=== PATIENT | male | born 1960 | race Caucasian/White ===

== ENCOUNTER 2017-10-23 11:00 | Emergency (ER) | payer OTHER, SELFPAY ==
[2017-10-23 11:01] VITALS: BP 147/74; PULSE 87; RESP 18; TEMP 36.9; O2SAT 99; BMI 44.6
--- NOTE | 2017-10-23 11:49 | ED.VISSUMM ---
- ER Visit Summary Date of Service: 10/23/17 Chief Complaint: Back pain History of Present Illness: The patient is a 57 M with onset of right-sided back pain after masturbating the shower yesterday. No radiation of his pain to his leg. No saddle anesthesia. He has no urinary symptoms, no urinary retention no bowel incontinence. No other trauma or pain. Physical Examination: Patient is a morbidly obese gentleman who does not appear in significant distress he is quite jolly and conversive. His heart is regular lungs are clear abdomen is soft obese but nontender. He has no LS spine tenderness most of his pain is in the paraspinal region on the right. He has normal reflexes normal plantar flexion of both feet normal dorsiflexion of both great toes. Emergency Department Course and Treatment: Patient does not exhibit any red flags he will be discharged with analgesia as and muscle relaxants. Discharge stable condition Impression: Lumbar strain This note was generated with [employer] dictation software. It may contain incorrect words, spelling, and punctuation that were not noted in review of the chart prior to signing ED Disposition - Plan for ED Patient: Chief Complaint: Back Referrals: Rylie Fu [Primary Care Provider] -
--- NOTE | 2017-10-23 11:52 | ED.VISSUMM ---
- ER Visit Summary Date of Service: 10/23/17 Chief Complaint: [] History of Present Illness: The patient is a 57 M [] Physical Examination: [] Test Results: [] Emergency Department Course and Treatment: [] Treatment Plan: [] Disposition: [] Impression: [] This note was generated with [employer] dictation software. It may contain incorrect words, spelling, and punctuation that were not noted in review of the chart prior to signing ED Disposition - Plan for ED Patient: Disposition: Home or Assisted Living Chief Complaint: Back Instructions: ED Neck Back Pain General Prescriptions: Naproxen [Naprosyn] 500 mg PO BID PRN #20 tab Tizanidine HCl 2 mg PO BID #10 tab Referrals: Rylie Fu [Primary Care Provider] - 2 Days
--- NOTE | 2017-10-23 11:55 | ED.DEP ---
ED Disposition - Plan for ED Patient: Disposition: Home or Assisted Living Chief Complaint: Back Instructions: ED Neck Back Pain General Prescriptions: Naproxen [Naprosyn] 500 mg PO BID PRN #20 tab Tizanidine HCl 2 mg PO BID #10 tab Referrals: Rylie Fu [Primary Care Provider] - 2 Days
== END 2017-10-23 12:25 | disposition home or self-care (01) ==
PROVIDERS: Emergency Provider Emergency Medicine
DX: S39.012A Strain of muscle, fascia and tendon of lower back, initial encounter (principal); X50.1XXA Overexertion from prolonged static or awkward postures, initial encounter; Y93.E1 Activity, personal bathing and showering; Y92.091 Bathroom in other non-institutional residence as the place of occurrence of the external cause; Y99.9 Unspecified external cause status; E66.01 Morbid (severe) obesity due to excess calories; E11.9 Type 2 diabetes mellitus without complications; I10 Essential (primary) hypertension
CPT/HCPCS: 99282

== ENCOUNTER → 2018-03-27 07:06 | Outpatient (CLI) | payer OTHER, SELFPAY ==
--- NOTE | 2018-03-26 16:30 | LES_PTH ---
PATIENT: HUMBLE BOYER LOC: [facility] U#:[id number] AGE/SX: 64/M ROOM: RE03/27/[address]: Dr. Rico Farah MD : 1960 BED: DIS: SPEC #: [id number] RECD: 03/26/18 17:25 STATUS: CHICHO BALJEET #: [id number] HANY: 03/26/18 16:[address]: Rico Farah DEPT: SURGICAL PATHOLOGY RECD BY: Corey Ballard ENTERED: 03/27/18 07:21 SP TYPE: Lesion OTHR DR: [facility] Tissues: Skin of eyelid, NOS Procedures: Surgery Specimen Level IV HEADER OPERATION: Excisional biopsy of lesion RLL PRE-OP DIAGNOSIS: Lesion present x long time TISSUE SUBMITTED: Lesion RLL MICROSCOPIC DIAGNOSIS Lesion of right lower eyelid, biopsy: Fragments of fibroepithelial polyp, inflamed. AM:nehemiah 03/28/18 MICROSCOPIC DESCRIPTION Slides are reviewed. GROSS DESCRIPTION Received in fixative is one container labeled with the patient's name and designated right lower lid lesion. The specimen consists of a polypoid piece of barrios-white skin measuring 0.6 x 0.6 x 0.5 cm. The specimen is inked, bisected and submitted entirely in one cassette. / SJ:rg 03/27/18 TC:1 CPT: 15287
== END ==
PROVIDERS: Referring Provider Ophthalmology; Visit Provider Ophthalmology
DX: H02.9 Unspecified disorder of eyelid (principal)
CPT/HCPCS: 88305

== ENCOUNTER → 2019-11-20 09:15 | Outpatient (CLI) | payer BC, SELFPAY ==
[2019-02-28 17:08] VITALS: BMI 44.6
[2019-11-20 10:46] LABS: Absolute Lymphocyte Count 1.62 X10^3/uL (0.83-4.51); Absolute Neutrophil Count 7.1 X10^3/uL (2.0-7.7); Basophil# 0.03 X10^3/uL; Basophil% 0.3 % (0-1); Eosinophil# 0.07 X10^3/uL; Eosinophils% 0.7 % (0-5); Hemoglobin 11.1 g/dL (13.0-16.5); Lymphocyte # 1.62 X10^3/ul (4.0); Lymphocyte % 16.7 % (19-41); Mean Corp Hgb Conc 31.7 g/dL (32-36); Mean Corpuscular Hgb 24.8 pg (27.0-32.0); Mean Corpuscular Volume 78.1 fL (80-94); Mean Platelet Vol. 9.3 fl (6.2-12.0); Monocyte% 8.2 % (0-10); NRBC Flagged by Analyzer 0 % (0-5); Neutrophil # 7.08 X10^3/uL (2.7-7.7); Neutrophil % 73.1 % (47-70); Platelet Count 254 K/mm3 (150-450); RBC Distribution Width CV 14.9 % (11.6-14.6); Red Blood Count 4.48 M/mm3 (4.6-6.2); White Blood Count 9.7 K/mm3 (4.4-11.0)
[2019-11-20 11:26] LABS: Vitamin D,25 Hydroxy 29.4 ng/mL
[2019-11-20 11:33] LABS: ALB/GLOB Ratio 0.8 RATIO (0.9-2.4); AST(SGOT) 36 U/L (15-37); Alanine Aminotransfer ALT/SGPT 48 U/L (16-61); Albumin, Serum 3.3 g/dL (3.2-5.0); Alkaline Phosphatase 97 U/L (45-117); Anion Gap 8 (5-15); BUN 16 mg/dL (7-18); BUN/Creat Ratio 15.8 RATIO (10-20); Calcium,Total 8.9 mg/dL (8.5-10.1); Chloride 97 mmol/L (98-107); Cholesterol 124 mg/dL (200); Creatinine, Serum 1.01 mg/dL (0.70-1.30); EST Glomerular Filtration Rate 80 mL/min (>60); Est Glom Filt Rate - Afr Amer 96 mL/min (>60); Globulin 4.2 g/dL (2.2-4.2); Glucose 259 mg/dL (74-106); High Density Lipoprotein 31 mg/dL; Potassium 3.5 mmol/L (3.5-5.1); Protein, Total 7.5 g/dL (6.4-8.2); Sodium Level 134 mmol/L (136-145); Triglycerides 232 mg/dL; Very Low Density Lipoprotein 46 mg/dL (5-40)
== END ==
DX: E11.65 Type 2 diabetes mellitus with hyperglycemia (principal); I10 Essential (primary) hypertension; E78.5 Hyperlipidemia, unspecified; E55.9 Vitamin D deficiency, unspecified
CPT/HCPCS: 36415; 80053; 80061; 82306; 83036; 85025

== ENCOUNTER 2020-01-20 08:13 | Day surgery (SDC) | payer BC, SELFPAY ==
[2019-12-30 14:58] VITALS: BMI 44.6
--- NOTE | 2020-01-20 08:32 | HP.PCM_ITS ---
Problem List (1) Personal history of colonic polyps Status: Acute History and Physical Date of Admission: 01/20/20 Intake Visit Reasons: CSCOPE/ ABDOMINAL PAIN Quality Assurance Intern Required: No Is patient in pain?: No Allergies house dust Allergy (Verified 12/30/19 14:59) Unknown ragweed pollen Allergy (Verified 12/30/19 14:59) Unknown Medications Amlodipine [Norvasc] 10 mg PO DAILY 06/01/13 [History Confirmed 12/30/19] Ferrous Sulfate [Iron Supplement] 325 mg PO DAILY 06/01/13 [History Confirmed 12/30/19] Hydrochlorothiazide 12.5 mg PO DAILY 06/01/13 [History Confirmed 12/30/19] Loratadine [Claritin] 10 mg PO DAILY 06/01/13 [History Confirmed 12/30/19] Atenolol [Tenormin] 25 mg PO BID 10/23/17 [History Confirmed 12/30/19] Candesartan/Hydrochlorothiazid [Atacand Hct 32-12.5 MG Tab] 1 tab PO DAILY 10/23/17 [History Confirmed 12/30/19] Dulaglutide [Trulicity] 0.75 mg SQ QWEEK 10/23/17 [History Confirmed 12/30/19] Fluticasone Propionate [Flovent Diskus] 2 spray NARES BID 10/23/17 [History Confirmed 12/30/19] Insulin Glargine,Hum.rec.anlog [Lantus Solostar] 25 unit SQ DAILY 10/23/17 [History Confirmed 12/30/19] Omeprazole 40 mg PO DAILY 10/23/17 [History Confirmed 12/30/19] Pravastatin Sodium 40 mg PO DAILY 10/23/17 [History Confirmed 12/30/19] Sildenafil Citrate [Sildenafil] 20 - 40 mg PO PRN PRN 10/23/17 [History Confirmed 12/30/19] metformin 1,000 mg tablet 1,000 mg PO BID tab 12/30/19 [History Confirmed 12/30/19] [facility] Medical History Hemorrhoids (Acute) Acid reflux (Acute) Abdominal pain (Acute) Sleep apnea (Acute) Heart murmur (Acute) Numbness and tingling (Acute) Arthritis (Acute) Back problem (Acute) HTN (hypertension) (Chronic) Diabetes (Acute) Hay fever (Acute) Knee pain (Acute) Neck pain (Acute) Kidney stone (Acute) Left otitis externa (Acute) Surgical History Hx of colonoscopy (Acute) Family History Mother Diabetes Heart disease Hypertension Father Kidney disease CVA (cerebral vascular accident) Hypertension Diabetes Social History (Updated 12/30/19 @ 15:[address] Dean Jon MD) Smoking Status: Former smoker second hand exposure: No alcohol intake: never substance use type: does not use caffeine: Yes what type of physical activity do you participate in: none frequency: does not exercise HPI HPI HPI: HUMBLE BOYER, is a 59 M who presents to the office today for further discussion regarding a colonoscopy. He is referred by Monique Azar CNP and the [facility] and a written compromise surgical consult recommendations will return to them. The patient states that he has a strong family history of colon polyps. This would be in a mother and his sister. No family history of colon cancer of which she is aware. He had a colonoscopy [address] Donahue showing multiple polyps. He had a colonoscopy done by Dr. Jeffrey Soriano April 2010 showing inflammatory type polyp of the descending colon. He apparently is chronically iron deficient. As of November 20, 2019 white blood cell count was 9.7 with a hemoglobin 11.1 and hematocrit of 35 and a platelet count of 254,000. BUN is 16 creatinine 1.01. Glucose at that time was elevated to 259 and triglyceride was 232 He is noting that he has extra flatulence. He has not noticed any bright red blood per rectum. He denies abdominal pain. He is employed at [employer]. He states that they just now have been having laid-off employees return. HPI HPI HPI: HUMBLE BOYER, is a 59 M who presents to the office today for ROS General General: No weight change, appetite, fatigue, colon cancer, breast cancer or weakness HEENT HEENT: No difficulty swallowing, eye injury, eye surgery, swollen glands or hoarseness Endo Endocrine: Yes diabetes mellitus; no thyroid disease, thyroid cancer, Hair loss, heat intolerance or cold intolerance Skin Skin: Yes rash and changing moles Musc Musculoskeletal: Yes back problems and arthritis; no rheumatoid arthritis, gout or joint pain Cardio Cardiovascular: Yes murmur and high blood pressure; no pacemaker, heart disease, atrial fibrillation, heart attack, heart stent, palpitations, shortness of breat with exertion or chest pain Psych Psychiatric: No depression, anxiety or hearing voices Resp Respiratory: No shortness of breath, Yes sleep apnea, No cough, No COPD, No asthma, No emphysema, No wheezing Gastro Gastrointestinal: Yes abdominal pain, No nausea or vomiting, No diarrhea, No constipation, No blood in stool, Yes acid reflux, Yes hemorrhoids, No ulcers, No gallbladder problem, No black,tarry stools [place] Hematologic: No blood thinners, No blood disorders, No bleeding, No anemia, No blood clots Neuro Neurologic: No system reviewed and no additional complaints, except as docu, No as per HPI, No abnormal walking, No abnormal hearing, No abnormal movements, No abnormal speech, No behavioral changes, No burning sensations, No confusion, No seizure-like activity, No unsteadiness, No dizziness, No localized weakness, No frequent falls, No headache(s), No lack of coordination, No loss of vision, No memory loss, No numbness, No other visual disturbances, No radiating pain, No restless legs, No sensory deficit, No fainting, No tingling, No tremor(s), No weakness, No other Exam Const General: cooperative, comfortable, no acute distress Nutritional Appearance: obese morbidly obese [facility] Head: normal to inspection Eyes General: appearance normal, both eyes and all related structures Resp Effort & Inspection: normal respiratory effort Auscultation: clear to auscultation bilaterally Cardio Rate: regular rate, tachycardic Rhythm: regular rhythm Heart Sounds: murmur GI Palpation: soft Other: Obese, no gross hepatosplenomegaly, normal bowel sounds, nontender Musc Cervical Spine: normal cervical lordosis Neuro General: awake Extrem General: no calf tenderness Psych Affect: normal affect Assessment & Plan Problems 1. Personal history of colonic polyps Z86.010 Plan I recommend to the patient a colonoscopy with possible biopsy or polypectomy as indicated. Body habitus is tender 60 pounds with a BMI of 44.6. I anticipate utilizing an adult colonoscope. We will use a slightly more aggressive bowel prep. He is on chronic iron therapy as well. He has had an opportunity to ask and have questions answered. I anticipate utilizing monitored anesthesia care. I appreciate the opportunity of assisting with her surgical management. Copy: Monique Azar CNP and the [facility] Dean Jon M.D., F.A.C.S. I have re-examined the patient. There are no clinical changes since date of exam. Procedure Criteria Procedure Type: Elective COVID Risk Discussion: The surgeon/proceduralist and patient have discussed in detail the risk of exposure to and/or potential harm posed by the COVID-19 virus with having a surgery/procedure at this time versus the risk of delaying the surgery/procedure. It is not possible to know either the risk of delaying the surgery or procedure or chance of getting an infection with perfect accuracy, but a joint decision was made between the patient and the surgeon/proceduralist to proceed at this time with the scheduled surgery/procedure as indicated on the consent form.
[2020-01-20 08:49] VITALS: BP 127/54; PULSE 80; RESP 20; TEMP 36.2; O2SAT 97; BMI 43.4
[2020-01-20] MEDS: Lactated Ringers 1,000 ML 100 ML IV (09:00)
[2020-01-20 09:11] LABS: Bedside Glucose 222 mg/dL (70-110)
--- NOTE | 2020-01-20 09:30 | COLBX_PTH ---
PATIENT: HUMBLE BOYER LOC: EN U#:[id number] AGE/SX: 59/M ROOM: RE01/20/[address]: Dr. Dean Jon MD : 1960 BED: DIS: 01/20/2020 SPEC #: [id number] RECD: 01/20/20 11:22 STATUS: CHICHO BALJEET #: [id number] HANY: 01/20/20 09:[address]: Dean Jon DEPT: SURGICAL PATHOLOGY RECD BY: Angelique Hunter ENTERED: 01/20/20 12:12 SP TYPE: COLON BX OTHR DR: Dr. Willie Babcock MD [place] Tissues: A - Cecum, NOS B - Cecum, NOS C - COLON BIOPSY D - COLON BIOPSY E - Descending colon F - Sigmoid colon biopsy G - Sigmoid colon biopsy H - Rectum, NOS Procedures: Surgery Specimen Level IV HEADER OPERATION: Colonoscopy (MAC) PRE-OP DIAGNOSIS: Colonic polyps TISSUE SUBMITTED: A - Cecum polyp, B - Cecum polyp #2 biopsy, C - Hepatic flexure polyp, D - Splenic flexure polyp, E - Descending polyp biopsy, F - Sigmoid polyps (x4) biopsy, G - Distal sigmoid polyp biopsy, H - Rectum polyp MICROSCOPIC DIAGNOSIS A. Cecum polyp, biopsy: Fragments of tubular adenoma. B. Cecal polyp #2, biopsy: Tubular adenoma. C. Hepatic flexure polyp, biopsy: Fragments of tubular adenoma. Fragments of fecal material. D. Splenic flexure polyp, biopsy: Fragments of tubular adenoma. Fragments of fecal material. E. Descending colon polyp, biopsy: Fragments of colonic mucosa, no pathologic diagnosis. F. Sigmoid polyp, biopsy: Fragments of colonic mucosa with focal hyperplastic changes. G. Distal sigmoid polyp, biopsy: A fragment of colonic mucosa with focal hyperplastic changes. H. Rectal polyp, biopsy: Consistent with inflammatory polyp. SJ:nehemiah 01/21/20 MICROSCOPIC DESCRIPTION Slides are reviewed. GROSS DESCRIPTION A - Received in fixative is one container labeled with the patient's name and designated cecum polyp. The specimen consists of multiple irregular fragments of light barrios soft tissue that in aggregate measure 0.8 x 0.8 x 0.2 cm. The specimen is totally submitted in one cassette. B - Received in fixative is one container labeled with the patient's name and designated cecum polyp #2 biopsy. The specimen consists of one irregular fragment of light barrios soft tissue that measures 0.3 x 0.2 x 0.1 cm. The specimen is totally submitted in one cassette. C - Received in fixative is one container labeled with the patient's name and designated hepatic flexure polyp. The specimen consists of multiple irregular fragments of light barrios soft tissue mixed with fecal material that in aggregate measure 3 x 0.5 x 0.2 cm. The specimen is totally submitted in one cassette. D - Received in fixative is one container labeled with the patient's name and designated splenic flexure polyp. The specimen consists of multiple irregular fragments of light barrios soft tissue mixed with fecal material that in aggregate measure 2.5 x 0.5 x 0.3 cm. The largest fragment measures 1 cm in greatest dimension. The specimen is totally submitted in one cassette. E - Received in fixative is one container labeled with the patient's name and designated descending polyp biopsy. The specimen consists of two irregular fragments of light barrios soft tissue that in aggregate measure 0.8 x 0.3 x 0.1 cm. The specimen is totally submitted in one cassette. F - Received in fixative is one container labeled with the patient's name and designated sigmoid polyp (x4) biopsy. The specimen consists of multiple irregular fragments of light barrios soft tissue that in aggregate measure 1.5 x 0.5 x 0.1 cm. The specimen is totally submitted in one cassette. G - Received in fixative is one container labeled with the patient's name and designated distal sigmoid polyp biopsy. The specimen consists of one irregular fragment of light barrios soft tissue that measures 0.3 x 0.2 x 0.1 cm. The specimen is totally submitted in one cassette. H - Received in fixative is one container labeled with the patient's name and designated rectum polyp biopsy. The specimen consists of a piece of barrios-pink polyp measuring 1 x 0.7 x 0.6 cm. The apparent base is inked. The polyp is bisected and submitted entirely in one cassette. / SJ:rg 01/20/20 TC:1 CPT: 82059 x8
[2020-01-20 10:15] VITALS: BP 125/82; BP 127/54; PULSE 70; RESP 16; TEMP 36.6; O2SAT 94
--- NOTE | 2020-01-20 10:17 | OP.COLON_ITS ---
Patient Name: Antonino Schofield Procedure Date: 01/20/2020 9:31 AM Date of : 1960 Age: 59 Procedure: Colonoscopy Indications: High risk colon cancer surveillance: Personal history of colonic polyps Providers: Dean Jon MD Referring MD: Rylie Jorge [facility] Medicines: See the Anesthesia note for documentation of the administered medications Patient Profile: Last Colonoscopy: 2006. Complications: No immediate complications. Procedure: Pre-Anesthesia Assessment: - Prior to the procedure, a History and Physical was performed, and patient medications and allergies were reviewed. The patient's tolerance of previous anesthesia was also reviewed. The risks and benefits of the procedure and the sedation options and risks were discussed with the patient. All questions were answered, and informed consent was obtained. Prior Anticoagulants: The patient has taken no previous anticoagulant or antiplatelet agents. ASA Grade Assessment: II - A patient with mild systemic disease. After reviewing the risks and benefits, the patient was deemed in satisfactory condition to undergo the procedure. After I obtained informed consent, the scope was passed under direct vision. Throughout the procedure, the patient's blood pressure, pulse, and oxygen saturations were monitored continuously. The adult colonoscope was introduced through the anus and advanced to the cecum, identified by appendiceal orifice and ileocecal valve. The colonoscopy was somewhat difficult due to the patient's body habitus. The patient tolerated the procedure well. The quality of the bowel preparation was adequate to identify polyps. The ileocecal valve and the appendiceal orifice were photographed. Scope In: 9:37:51 AM Scope Withdrawal Time 0 hours 22 minutes 47 seconds Scope Out: 10:06:22 AM Total Procedure Duration Time 0 hours 28 minutes 31 seconds Findings: The digital rectal exam findings include non-thrombosed external hemorrhoids, non-thrombosed internal hemorrhoids, internal hemorrhoids that prolapse with straining, but spontaneously regress to the resting position (Grade II) and enlarged prostate. A 8 mm polyp was found in the cecum. The polyp was sessile. The polyp was removed with a hot snare. Resection and retrieval were complete. A 4 mm polyp was found in the cecum. The polyp was sessile. The polyp was removed with a cold biopsy forceps. Resection and retrieval were complete. A 10 mm polyp was found in the hepatic flexure. The polyp was sessile. The polyp was removed with a hot snare. Resection and retrieval were complete. A 8 mm polyp was found in the splenic flexure. The polyp was sessile. The polyp was removed with a hot snare. Resection and retrieval were complete. A 5 mm polyp was found in the descending colon. The polyp was sessile. The polyp was removed with a cold biopsy forceps. Resection and retrieval were complete. Four sessile polyps were found in the mid sigmoid colon. The polyps were 5 mm in size. These polyps were removed with a cold biopsy forceps. Resection and retrieval were complete. A 6 mm polyp was found in the distal sigmoid colon. The polyp was sessile. The polyp was removed with a cold biopsy forceps. Resection and retrieval were complete. A 12 mm polyp was found in the rectum. The polyp was sessile. The polyp was removed with a hot snare. Resection and retrieval were complete. Impression: - Non-thrombosed external hemorrhoids, non-thrombosed internal hemorrhoids, internal hemorrhoids that prolapse with straining, but spontaneously regress to the resting position (Grade II) and enlarged prostate found on digital rectal exam. - One 8 mm polyp in the cecum, removed with a hot snare. Resected and retrieved. - One 4 mm polyp in the cecum, removed with a cold biopsy forceps. Resected and retrieved. - One 10 mm polyp at the hepatic flexure, removed with a hot snare. Resected and retrieved. - One 8 mm polyp at the splenic flexure, removed with a hot snare. Resected and retrieved. - One 5 mm polyp in the descending colon, removed with a cold biopsy forceps. Resected and retrieved. - Four 5 mm polyps in the mid sigmoid colon, removed with a cold biopsy forceps. Resected and retrieved. - One 6 mm polyp in the distal sigmoid colon, removed with a cold biopsy forceps. Resected and retrieved. - One 12 mm polyp in the rectum, removed with a hot snare. Resected and retrieved. Recommendation: - Discharge patient to home. - Resume previous diet. - Continue present medications. - Repeat colonoscopy in 1 year for surveillance. - Telephone my office for pathology results in 1 week. Procedure Code(s): --- Professional --- 29790, Colonoscopy, flexible; with removal of tumor(s), polyp(s), or other lesion(s) by snare technique 99599, 59, Colonoscopy, flexible; with biopsy, single or multiple Diagnosis Code(s): --- Professional --- Z86.010, Personal history of colonic polyps D12.0, Benign neoplasm of cecum D12.3, Benign neoplasm of transverse colon (hepatic flexure or splenic flexure) D12.4, Benign neoplasm of descending colon D12.5, Benign neoplasm of sigmoid colon K62.1, Rectal polyp K64.1, Second degree hemorrhoids K64.4, Residual hemorrhoidal skin tags N40.0, Benign prostatic hyperplasia without lower urinary tract symptoms CPT copyright 2017 [employer]. All rights reserved. The codes documented in this report are preliminary and upon track man review may be revised to meet current compliance requirements. Dean Jon MD 01/20/2020 10:16:44 AM This report has been signed electronically. Number of Addenda: 0 Note Initiated On: 01/20/2020 9:31 AM
--- NOTE | 2020-01-20 10:17 | OP.CCLET_ITS ---
01/20/2020 Rylie Jorge [facility] Re : Colonoscopy procedure for Antonino Lea [facility] This procedure was performed on Monday, January 20, 2020. My impressions and recommendations are as follows: Impressions : - Non-thrombosed external hemorrhoids, non-thrombosed internal hemorrhoids, internal hemorrhoids that prolapse with straining, but spontaneously regress to the resting position (Grade II) and enlarged prostate found on digital rectal exam. - One 8 mm polyp in the cecum, removed with a hot snare. Resected and retrieved. - One 4 mm polyp in the cecum, removed with a cold biopsy forceps. Resected and retrieved. - One 10 mm polyp at the hepatic flexure, removed with a hot snare. Resected and retrieved. - One 8 mm polyp at the splenic flexure, removed with a hot snare. Resected and retrieved. - One 5 mm polyp in the descending colon, removed with a cold biopsy forceps. Resected and retrieved. - Four 5 mm polyps in the mid sigmoid colon, removed with a cold biopsy forceps. Resected and retrieved. - One 6 mm polyp in the distal sigmoid colon, removed with a cold biopsy forceps. Resected and retrieved. - One 12 mm polyp in the rectum, removed with a hot snare. Resected and retrieved. Recommendations : - Discharge patient to home. - Resume previous diet. - Continue present medications. - Repeat colonoscopy in 1 year for surveillance. - Telephone my office for pathology results in 1 week. My findings are described in the full procedure note, which is enclosed. If I can be of further assistance, please feel free to contact me at Doctor phone number(s): Work: . Sincerely, Dean Jon MD 01/20/2020 10:16:44 AM This report has been signed electronically.
[2020-01-20 10:20] VITALS: BP 127/54; BP 129/76; PULSE 77; RESP 16; O2SAT 92
[2020-01-20 10:25] VITALS: BP 124/73; BP 127/54; PULSE 68; RESP 16; O2SAT 93
[2020-01-20 10:30] VITALS: BP 127/54; BP 129/74; PULSE 75; RESP 16; TEMP 36.6; O2SAT 93
[2020-01-20 11:13] VITALS: BP 127/54
== END 2020-01-20 11:21 | disposition home or self-care (01) ==
LOC: EN 08:14 → AC 08:15
PROVIDERS: Visit Provider Surgery
PROC: 0DJD8ZZ Inspection of Lower Intestinal Tract, Via Natural or Artificial Opening Endoscopic (ICD-10-PCS; CPT 45378; principal; 2020-01-20 09:25)
DX: Z12.11 Encounter for screening for malignant neoplasm of colon (principal); Z86.010 Personal history of colon polyps; D12.0 Benign neoplasm of cecum; D12.3 Benign neoplasm of transverse colon; D12.4 Benign neoplasm of descending colon; D12.5 Benign neoplasm of sigmoid colon; K62.1 Rectal polyp; K64.4 Residual hemorrhoidal skin tags; K64.1 Second degree hemorrhoids; N40.0 Benign prostatic hyperplasia without lower urinary tract symptoms; Z68.41 Body mass index [BMI] 40.0-44.9, adult; Z79.4 Long term (current) use of insulin; Z79.51 Long term (current) use of inhaled steroids; Z87.19 Personal history of other diseases of the digestive system; Z87.891 Personal history of nicotine dependence; I10 Essential (primary) hypertension; E11.9 Type 2 diabetes mellitus without complications
CPT/HCPCS: 45380; 45385; 82962; 87426; 88305; C9803; J7120; J2405

== ENCOUNTER → 2020-02-23 11:28 | Outpatient (CLI) | payer BC, SELFPAY ==
[2020-02-23 12:48] LABS: Absolute Lymphocyte Count 1.79 X10^3/uL (0.83-4.51); Absolute Neutrophil Count 7.1 X10^3/uL (2.0-7.7); Basophil# 0.03 X10^3/uL; Basophil% 0.3 % (0-1); Eosinophil# 0.12 X10^3/uL; Eosinophils% 1.2 % (0-5); Hematocrit 34.8 % (40-54); Lymphocyte # 1.79 X10^3/ul (4.0); Mean Corp Hgb Conc 31.6 g/dL (32-36); Mean Corpuscular Hgb 24.6 pg (27.0-32.0); Mean Corpuscular Volume 77.7 fL (80-94); Mean Platelet Vol. 9.1 fl (6.2-12.0); Monocyte# 0.73 X10^3/uL; Monocyte% 7.3 % (0-10); NRBC Flagged by Analyzer 0 % (0-5); Neutrophil # 7.14 X10^3/uL (2.7-7.7); Neutrophil % 71.8 % (47-70); Platelet Count 248 K/mm3 (150-450); RBC Distribution Width CV 14.8 % (11.6-14.6); RBC Distribution Width SD 41.1 fl (35.1-43.9); Red Blood Count 4.48 M/mm3 (4.6-6.2)
[2020-02-23 13:05] LABS: Vitamin D,25 Hydroxy 29.2 ng/mL
[2020-02-23 13:09] LABS: Hemoglobin A1c 8.7 % (3.8-5.6)
[2020-02-23 13:19] LABS: ALB/GLOB Ratio 0.9 RATIO (0.9-2.4); AST(SGOT) 27 U/L (15-37); Alanine Aminotransfer ALT/SGPT 48 U/L (16-61); Albumin, Serum 3.5 g/dL (3.2-5.0); Alkaline Phosphatase 83 U/L (45-117); Anion Gap 7 (5-15); BUN 14 mg/dL (7-18); BUN/Creat Ratio 16.6 RATIO (10-20); Calcium,Total 9.3 mg/dL (8.5-10.1); Chloride 102 mmol/L (98-107); Cholesterol 124 mg/dL (200); Creatinine, Serum 0.84 mg/dL (0.70-1.30); EST Glomerular Filtration Rate 98 mL/min (>60); Est Glom Filt Rate - Afr Amer 119 mL/min (>60); Glucose 174 mg/dL (74-106); High Density Lipoprotein 30 mg/dL; Potassium 3.3 mmol/L (3.5-5.1); Protein, Total 7.5 g/dL (6.4-8.2); Sodium Level 138 mmol/L (136-145); Triglycerides 193 mg/dL; Very Low Density Lipoprotein 39 mg/dL (5-40)
== END ==
PROVIDERS: Referring Provider Family Medicine; Visit Provider Family Medicine
DX: D64.9 Anemia, unspecified (principal); I10 Essential (primary) hypertension; E11.65 Type 2 diabetes mellitus with hyperglycemia; E55.9 Vitamin D deficiency, unspecified; E78.5 Hyperlipidemia, unspecified
CPT/HCPCS: 36415; 80053; 80061; 82306; 83036; 85025

== ENCOUNTER → 2020-05-12 09:41 | Outpatient (CLI) | payer MEDICAID, SELFPAY ==
[2020-05-12 11:45] LABS: Hemoglobin A1c 7.6 % (3.8-5.6)
[2020-05-12 11:54] LABS: ALB/GLOB Ratio 0.9 RATIO (0.9-2.4); AST(SGOT) 20 U/L (15-37); Alanine Aminotransfer ALT/SGPT 38 U/L (16-61); Albumin, Serum 3.6 g/dL (3.2-5.0); Alkaline Phosphatase 78 U/L (45-117); Anion Gap 5 (5-15); BUN 19 mg/dL (7-18); BUN/Creat Ratio 22.7 RATIO (10-20); Calcium,Total 9.5 mg/dL (8.5-10.1); Chloride 106 mmol/L (98-107); Creatinine, Serum 0.84 mg/dL (0.70-1.30); EST Glomerular Filtration Rate 99 mL/min (>60); Est Glom Filt Rate - Afr Amer 119 mL/min (>60); Glucose 147 mg/dL (74-106); Potassium 3.7 mmol/L (3.5-5.1); Protein, Total 7.6 g/dL (6.4-8.2); Sodium Level 141 mmol/L (136-145)
== END ==
DX: E11.65 Type 2 diabetes mellitus with hyperglycemia (principal)
CPT/HCPCS: 36415; 80053; 83036

== ENCOUNTER → 2020-05-18 10:46 | Outpatient (CLI) | payer MEDICAID, SELFPAY ==
--- NOTE | 2020-05-18 10:49 | RAD_ITS ---
STUDY: X-RAY - LUMBAR SPINE REASON FOR EXAM: Male, 59 years old. LOW BACK PAIN X YEARS, GETTING WORSE, INTERMITTENTLY RADIATES DOWN LEGS TECHNIQUE: 3 view(s) of the lumbar spine were obtained. COMPARISON: None FINDINGS: Normal lumbar lordosis. There is no substantial scoliosis. There is a normal alignment of the vertebrae. There is multilevel endplate spondylosis of the lumbar vertebrae. There is multi-level degenerative disc disease with multi-level disc space narrowing. There is atherosclerotic calcification of the abdominal aorta without a demonstrated aneurysm. RAD/Lumbar Spine 2 or 3 Views IMPRESSION: Degenerative changes of the spine, as detailed above. Electronically Signed: Dhruv Gupta MD at 12:38 EDT , Service support ,
== END ==
DX: M54.5 Low back pain (principal)
CPT/HCPCS: 72100

== ENCOUNTER → 2020-06-18 10:21 | Outpatient (CLI) | payer MEDICAID, SELFPAY ==
[2020-05-26 14:12] VITALS: BMI 42.9
--- NOTE | 2020-06-18 10:24 | EKG12_ITS ---
Test Reason : PALP Blood Pressure : / mmHG Vent. Rate : 084 BPM Atrial Rate : 093 BPM P-R Int : 000 ms QRS Dur : 112 ms QT Int : 418 ms P-R-T Axes : 000 125 044 degrees QTc Int : 493 ms Atrial fibrillation with premature ventricular or aberrantly conducted complexes Left posterior fascicular block Prolonged QT Abnormal ECG Confirmed by FLORENTINO PIRES, BERNARD ([id number]), fashion editor SANDOR SHAY ([id number]) on 06/21/2020 10:08:22 AM Referred By: Maty Nicholson Confirmed By:BERNARD GOOD MD
== END ==
PROVIDERS: PCP Nurse Practitioner Adult Health; Referring Provider Nurse Practitioner Adult Health; Visit Provider Nurse Practitioner Adult Health
DX: R00.2 Palpitations (principal)
CPT/HCPCS: 93005

== ENCOUNTER → 2020-09-06 06:39 | Outpatient (CLI) | payer MEDICAID, SELFPAY ==
[2020-08-18 13:06] VITALS: BMI 43.6
--- NOTE | 2020-09-06 06:42 | ECHOCS_ITS ---
Reason For Study: A. fib/flutter Procedure This was a 2D Doppler, Color Flow transthoracic echocardiogram. The study was technically difficult. Exam performed in department. Left Ventricle Normal LV size. Left ventricular systolic function is normal. The estimated ejection fraction is 55 %. No regional wall motion abnormalities noted. Right Ventricle Normal RV size. Normal systolic function. Atria The left atrium is moderately enlarged. Normal right atrium. Mitral Valve Normal mitral valve. Tricuspid Valve Normal tricuspid valve. Aortic Valve The aortic valve is not well visualized. Pulmonic Valve Normal pulmonic valve. Great Vessels Normal aortic root. The pulmonary artery is normal size. Normal inferior vena cava. Pericardium/Pleural No pericardial effusion. Medication Diluted definity 3ml given slow IV push to enhance endocardial definition. MMode/2D Measurements & Calculations LVIDd: 5.6 cm IVSd: 1.1 cm Ao root diam: 3.7 cm LVIDs: 4.2 cm LVPWd: 1.1 cm RVDd: 3.8 cm FS: 25.2 % LAV(MOD-bp): 96.2 ml LVAd ap4: 42.2 cm2 SV(MOD-sp4): 97.3 ml LAV(MOD-bp) Indexed: 44.4 ml/m2 LVLd ap4: 8.9 cm LAV(MOD-sp2): 69.6 ml EDV(MOD-sp4): 165.3 ml LAV(MOD-sp4): 111.8 ml EDV(sp4-el): 170.4 ml LVAs ap4: 24.7 cm2 LVLs ap4: 7.5 cm ESV(MOD-sp4): 68.1 ml ESV(sp4-el): 69.2 ml EF(MOD-sp4): 58.8 % EF(sp4-el): 59.4 % SV(sp4-el): 101.3 ml LA A4 area: 28.9 cm2 LA dimension(2D): 5.6 cm RA A4 area: 16.7 cm2 Doppler Measurements & Calculations MV E max mariana: 116.3 cm/sec Ao V2 max: 142.8 cm/sec LV V1 max: 96.6 cm/sec Ao max P.2 mmHg LV V1 max P.8 mmHg PA V2 max: 113.6 cm/sec ECHO/Echo Complete W/ Contrast Interpretation Summary Normal LV size. Left ventricular systolic function is normal. The estimated ejection fraction is 55 %. The left atrium is moderately enlarged. Contrast injection was performed. Ordering Physician: Altaf Tapia Referring Physician: Maty Nicholson Performed By: Blanca Rodríguez RDCS
--- NOTE | 2020-09-06 10:10 | STRESSREP_ITS ---
Stress Test Report Pharmacologic myocardial perfusion stress test. 60-year-old male with a history of atrial fibrillation. Stress protocol: Resting KG demonstrates atrial fibrillation with a rate of 83 bpm premature ventricular complexes noted resting blood pressure is 138/84 mmHg. 0.4 mg of regadenoson was infused per usual protocol followed byIntravenous and flush injection continuous EKG monitoring was performed. The maximum heart rate attained was 122 bpm which was 77% of maximum predicted heart rate the maximum workload was 1 metabolic equivalent. At rest there were no ST or T wave changes noted to suggest abnormal flow reserve on peak infusion nonspecific ST changes were noted. The patient maintained atrial fibrillation throughout the record ing. The peak blood pressure was 158/80 mmHg. Myocardial perfusion protocol. 14.3 mCi of technetium 99m sestamibi was injected at rest. 0.4 mg of regadenoson was infused per usual protocol. At peak infusion 44.1 mCi of technetium 99m sestamibi was injected stress images were obtained stress and rest images were reconstructed and compared in the short axis vertical long horizontal long axis. Gated images were also obtained. Perfusion SPECT analysis: Review of the stress images demonstrate normal uptake of tracer noted in all areas of the myocardium. The resting images similarly demonstrate normal uptake of tracer noted in all areas of the myocardium. No reversibility is noted to suggest ischemia no previous infarct is noted. Gated SPECT analysis: The gated ejection fraction is 52%. Conclusion: Normal pharmacologic myocardial perfusion stress test. Preserved ejection fraction. Atrial fibrillation noted.
== END ==
PROVIDERS: PCP Nurse Practitioner Adult Health; Referring Provider Internal Medicine Cardiovascular Disease; Visit Provider Internal Medicine Cardiovascular Disease
DX: I48.0 Paroxysmal atrial fibrillation (principal)
CPT/HCPCS: 78452; 93017; 93306; A9500; Q9957; A4216; C8929; J3490

== ENCOUNTER → 2020-09-21 11:09 | Outpatient (CLI) | payer MEDICAID, SELFPAY ==
[2020-08-18 13:06] VITALS: BMI 43.6
[2020-09-21 11:25] LABS: Absolute Lymphocyte Count 1.68 X10^3/uL (0.83-4.51); Absolute Neutrophil Count 7.2 X10^3/uL (2.0-7.7); Basophil# 0.04 X10^3/uL; Basophil% 0.4 % (0-1); Eosinophil# 0.12 X10^3/uL; Eosinophils% 1.2 % (0-5); Hematocrit 36.5 % (40-54); Hemoglobin 11.7 g/dL (13.0-16.5); Lymphocyte # 1.68 X10^3/ul (0.83-4.51); Lymphocyte % 16.8 % (19-41); Mean Corp Hgb Conc 32.1 g/dL (32-36); Mean Platelet Vol. 8.7 fl (6.2-12.0); NRBC Flagged by Analyzer 0 % (0-5); Neutrophil # 7.15 X10^3/uL (2.7-7.7); Neutrophil % 71.4 % (47-70); Platelet Count 248 K/mm3 (150-450); RBC Distribution Width CV 15.8 % (11.6-14.6); RBC Distribution Width SD 44.1 fl (35.1-43.9); Red Blood Count 4.68 M/mm3 (4.6-6.2)
[2020-09-21 11:53] LABS: Vitamin B12 400 pg/mL (211-911)
[2020-09-21 11:54] LABS: Iron 49 ug/dL (65-175); Iron Binding Capacity,Total 302 ug/dL (250-450)
== END ==
PROVIDERS: PCP Nurse Practitioner Adult Health; Visit Provider Nurse Practitioner Adult Health
DX: D64.9 Anemia, unspecified (principal)
CPT/HCPCS: 36415; 82607; 83540; 83550; 85025

== ENCOUNTER 2021-03-29 12:51 | Outpatient (CLI) | payer MEDICAID, SELFPAY ==
[2021-03-29 13:33] LABS: Absolute Lymphocyte Count 1.63 X10^3/uL (0.83-4.51); Absolute Neutrophil Count 7.4 X10^3/uL (2.0-7.7); Basophil# 0.04 X10^3/uL; Basophil% 0.4 % (0-1); Eosinophil# 0.11 X10^3/uL; Eosinophils% 1.1 % (0-5); Hemoglobin 11.2 g/dL (13.0-16.5); Lymphocyte # 1.63 X10^3/ul (0.83-4.51); Lymphocyte % 15.7 % (19-41); Mean Corpuscular Hgb 24.9 pg (27.0-32.0); Mean Corpuscular Volume 77.8 fL (80-94); Mean Platelet Vol. 8.8 fl (6.2-12.0); Monocyte# 0.98 X10^3/uL; Monocyte% 9.4 % (0-10); NRBC Flagged by Analyzer 0 % (0-5); Neutrophil # 7.43 X10^3/uL (2.7-7.7); Neutrophil % 71.5 % (47-70); Platelet Count 257 K/mm3 (150-450); RBC Distribution Width CV 16.6 % (11.6-14.6); White Blood Count 10.4 K/mm3 (4.4-11.0)
[2021-03-29 13:56] LABS: BNP,B-Type NATRIURETIC PEPTIDE 137.1 pg/mL (0-100)
[2021-03-29 14:07] LABS: ALB/GLOB Ratio 0.9 RATIO (0.9-2.4); AST(SGOT) 23 U/L (15-37); Alanine Aminotransfer ALT/SGPT 44 U/L (16-61); Albumin, Serum 3.6 g/dL (3.2-5.0); Alkaline Phosphatase 59 U/L (45-117); Anion Gap 8 (5-15); BUN 19 mg/dL (7-18); BUN/Creat Ratio 21.1 RATIO (10-20); Calcium,Total 9.1 mg/dL (8.5-10.1); Chloride 103 mmol/L (98-107); Cholesterol 163 mg/dL (200); EST Glomerular Filtration Rate 91 mL/min (>60); Est Glom Filt Rate - Afr Amer 110 mL/min (>60); Glucose 136 mg/dL (74-106); High Density Lipoprotein 32 mg/dL; Iron 56 ug/dL (65-175); Iron Binding Capacity,Total 317 ug/dL (250-450); Potassium 3.7 mmol/L (3.5-5.1); Protein, Total 7.6 g/dL (6.4-8.2); Sodium Level 139 mmol/L (136-145); Thyroid Stim Hormone (TSH) 4.04 uIU/mL (0.358-3.74); Triglycerides 187 mg/dL; Very Low Density Lipoprotein 37 mg/dL (5-40)
== END 2021-03-29 23:59 | disposition home or self-care (01) ==
LOC: LAB 12:53
PROVIDERS: Referring Provider Nurse Practitioner Adult Health; Visit Provider Nurse Practitioner Adult Health
DX: E11.65 Type 2 diabetes mellitus with hyperglycemia (principal); R60.0 Localized edema; Z12.5 Encounter for screening for malignant neoplasm of prostate
CPT/HCPCS: 84153; 36415; 80053; 80061; 83540; 83550; 83880; 84443; 85025; G0103

== ENCOUNTER 2021-05-10 06:22 | Day surgery (SDC) | payer MEDICAID, SELFPAY ==
[2021-05-10 06:51] VITALS: BP 124/57; PULSE 80; RESP 18; TEMP 36.7; O2SAT 97; BMI 43.0
--- NOTE | 2021-05-10 06:56 | PCM.HP.BLA ---
History and Physical Date of Admission: 05/10/21 Intake Visit Reasons: C-Scope consult hx of polyps Chief Complaint: C-Scope History colon polyps [employer] Manager Required: No Is patient in pain?: No Allergies house dust Allergy (Verified 04/22/21 14:26) Unknown ragweed pollen Allergy (Verified 04/22/21 14:26) Unknown Medications amlodipine 10 mg PO DAILY 06/01/13 [History Confirmed 04/22/21] ferrous sulfate 325 mg PO BID 06/01/13 [History Confirmed 04/22/21] loratadine 10 mg PO DAILY 06/01/13 [History Confirmed 04/22/21] atenolol 25 mg PO BID 10/23/17 [History Confirmed 04/22/21] fluticasone propionate 2 spray NARES BID 10/23/17 [History Confirmed 04/22/21] omeprazole 40 mg PO DAILY 10/23/17 [History Confirmed 04/22/21] pravastatin 40 mg tablet 40 mg PO QHS 10/23/17 [History Confirmed 04/22/21] metformin 1,000 mg tablet 1,000 mg PO BID tab 12/30/19 [History Confirmed 04/22/21] apixaban 5 mg tablet 5 mg PO BID #180 tab 08/18/20 [Rx Confirmed 04/22/21] empagliflozin 25 mg tablet 25 mg PO DAILY tab 08/18/20 [History Confirmed 04/22/21] potassium citrate 5 mEq (540 mg) tablet,extended release 5 meq PO DAILY tab 08/18/20 [History Confirmed 04/22/21] ascorbic acid (vitamin C) 500 mg capsule 500 mg PO DAILY cap 04/22/21 [History Confirmed 04/22/21] cholecalciferol (vitamin D3) 50 mcg (2,000 unit) capsule 50 mcg PO DAILY 04/22/21 [History Confirmed 04/22/21] furosemide 20 mg tablet 20 mg PO DAILY PRN 04/22/21 [History Confirmed 04/22/21] insulin glargine 100 unit/mL (3 mL) subcutaneous pen 40 unit SUBCUT BID ml 04/22/21 [History Confirmed 04/22/21] insulin lispro 100 unit/mL subcutaneous pen 18 unit SUBCUT DAILY ml 04/22/21 [History Confirmed 04/22/21] levothyroxine 25 mcg capsule 25 mcg PO DAILY 04/22/21 [History Confirmed 04/22/21] losartan 50 mg-hydrochlorothiazide 12.5 mg tablet 1 tab PO DAILY 04/22/21 [History Confirmed 04/22/21] magnesium 200 mg tablet 200 mg PO DAILY 04/22/21 [History Confirmed 04/22/21] zinc 50 mg tablet 30 mg PO DAILY tab 04/22/21 [History Confirmed 04/22/21] [facility] Medical History (Updated 04/22/21 @ 14:[address] Dean Jon MD) Acid reflux Anemia Arthritis Back problem Colon polyps Essential (primary) hypertension Hay fever Hemorrhoids Hyperlipidemia Kidney stone Knee pain Morbid obesity Neck pain Paronychia of left little finger Paroxysmal atrial fibrillation Personal history of colonic polyps Sleep apnea Type 2 diabetes mellitus Surgical History (Updated 04/22/21 @ 14:22 by Laurence Hammond) History of cataract surgery History of lithotripsy Hx of colonoscopy Family History Mother Diabetes Heart disease Hypertension Father Kidney disease CVA (cerebral vascular accident) Hypertension Diabetes Heart disease Sister Diabetes Cancer Kidney? Social History Smoking Status: Former smoker alcohol intake: never substance use type: does not use caffeine: Yes what type of physical activity do you participate in: none frequency: does not exercise HPI HPI HPI: HUMBLE BOYER, is a 60 M who presents to the office today for surgical consultation regarding colonoscopy. The patient is referred by Saray Llanes LPN [facility] and a written copy of my consult will return to her. Previous colonoscopy of December 2019 demonstrated at least 11 polyps. Majority of the polyps were tubular adenomas. The patient's BMI of 43.4 at that time complicated surgical care. His most recent laboratory of March 2021 demonstrates a white count of 10.4 with a hemoglobin 11.2 hematocrit 35 platelet count 257,000. BN P at that time is 137 with high normal being 100. BUN was 19 and creatinine 0.9. Liver function tests were normal. Because of chronic anemia he does take iron supplementation. He is also on Eliquis therapy for atrial fibrillation. He has had no bright red blood per rectum. He chronically has dark stools. No abdominal pain. No acute change of bowel habits. He states that over the past couple years he has not had any acute health event. ROS General General: Yes weight change; No appetite, fatigue, colon cancer, breast cancer or weakness HEENT HEENT: Yes eye surgery; No difficulty swallowing, eye injury, swollen glands or hoarseness Endo Endocrine: Yes thyroid disease and diabetes mellitus; No thyroid cancer, Hair loss, heat intolerance or cold intolerance Skin Skin: Yes rash; No changing moles Breast Breast: No left breast lump, right breast lump, nipple discharge, breast pain, abnormal mammogram, abnormal US or breast enlargement Musc Musculoskeletal: Yes back problems; No arthritis, rheumatoid arthritis, gout or joint pain Cardio Cardiovascular: Yes atrial fibrillation and high blood pressure; No murmur, pacemaker, heart disease, heart attack, heart stent, palpitations, shortness of breat with exertion or chest pain Psych Psychiatric: No depression, anxiety or hearing voices Resp Respiratory: No shortness of breath, No sleep apnea, No cough, No COPD, No asthma, No emphysema and No wheezing Gastro Gastrointestinal: No abdominal pain, No nausea or vomiting, No diarrhea, No constipation, No blood in stool, No acid reflux, No hemorrhoids, No ulcers, No gallbladder problem and Yes black,tarry stools Additional Details: Taking iron [place] Hematologic: Yes blood thinners, No blood disorders, No bleeding, No anemia and No blood clots Neuro Neurologic: No system reviewed and no additional complaints, except as documented, No as per HPI, No abnormal gait, No abnormal hearing, No abnormal movements, No abnormal speech, No behavioral changes, No burning sensations, No confusion, No convulsions, No disequilibrium, No dizziness, No localized weakness, No frequent falls, No headache(s), No lack of coordination, No loss of vision, No memory loss, No numbness, No other visual disturbances, No radicular pain, No restless legs, No sensory deficit, No syncope, No tingling, No tremor(s), No weakness and No other Exam Const General: cooperative, comfortable and no acute distress Nutritional Appearance: obese morbidly obese [facility] Head: normal to inspection Chest Chest palpation & inspection: normal inspection of the chest Resp Effort & Inspection: normal respiratory effort Auscultation: clear to auscultation bilaterally Cardio Rate: regular rate Rhythm: regular rhythm GI Palpation: no hepatosplenomegaly Musc Cervical Spine: normal cervical lordosis Neuro General: patient alert and patient awake Extrem Other: 2+ pitting edema bilateral lower extremities Psych Appearance: grossly normal and well kempt Assessment and Plan Assessment and Plan (1) Personal history of colonic polyps: Status: Acute Plan - Dr. Dean Jon MD: I recommended the Patient a colonoscopy with possible biopsy or polypectomy as indicated. Because of his previous history of 11 polyps this with monitored anesthesia care. He has had an opportunity to ask and have questions answered. We will have him hold his Eliquis for 2 days preprocedure. We will have him hold his iron therapy for 1 week. I appreciate the opportunity of assisting with the surgical care Dean Jon M.D., F.A.C.S. I have re-examined the patient. There are no clinical changes since date of exam.
[2021-05-10] MEDS: Lactated Ringers 1,000 ML 15 ML IV (07:01)
[2021-05-10 07:10] LABS: Bedside Glucose 141 mg/dL (74-106)
--- NOTE | 2021-05-10 07:30 | COLBX_PTH ---
PATIENT: HUMBLE BOYER LOC: EN U#:[id number] AGE/SX: 60/M ROOM: RE05/10/[address]: Dr. Dean Jon MD : 1960 BED: DIS: 05/10/2021 SPEC #: [id number] RECD: 05/10/21 15:53 STATUS: CHICHO BALJEET #: [id number] HANY: 05/10/21 07:[address]: Dean Jon DEPT: SURGICAL PATHOLOGY RECD BY: [place] ENTERED: 05/11/21 09:45 SP TYPE: COLON BX OTHR DR: [facility] Tissues: A - Ascending colon B - Descending colon Procedures: Surgery Specimen Level IV HEADER OPERATION: Colonoscopy (MAC) PRE-OP DIAGNOSIS: History of colonic polyps TISSUE SUBMITTED: A ? Proximal ascending colon, B ? Descending colon MICROSCOPIC DIAGNOSIS A. Proximal ascending colon, biopsy: Fragments of tubular adenoma. B. Descending colon, biopsy: Fragments of colonic mucosa, no pathologic diagnosis. See comment. SILVIA:nehemiah 05/12/2021 COMMENT B. Hyperplastic or adenomatous changes are not seen. MICROSCOPIC DESCRIPTION Slides are reviewed. GROSS DESCRIPTION A - Received in fixative is one container labeled with the patient's name and designated proximal ascending colon. The specimen consists of two irregular fragments of light barrios soft tissue that in aggregate measure 0.4 x 0.2 x 0.1 cm. The specimen is totally submitted in one cassette. B - Received in fixative is one container labeled with the patient's name and designated descending colon. The specimen consists of two irregular fragments of light barrios soft tissue that in aggregate measure 0.7 x 0.3 x 0.1 cm. The specimen is totally submitted in one cassette. / SILVIA:nehemiah 05/11/2021 TC:1 CPT: 09734 x2
[2021-05-10 08:10] VITALS: BP 116/72; BP 124/57; PULSE 60; RESP 16; TEMP 36.6; O2SAT 91
--- NOTE | 2021-05-10 08:12 | OP.CCLET_ITS ---
05/10/[address] [facility] Re : Colonoscopy procedure for Antonino Schofield [facility] This procedure was performed on Monday, May 10, 2021. My impressions and recommendations are as follows: Impressions : - Hemorrhoids found on perianal exam. - One 4 mm polyp in the proximal ascending colon, removed with a cold biopsy forceps. Resected and retrieved. - One 5 mm polyp in the mid descending colon, removed with a cold biopsy forceps. Resected and retrieved. - Diverticulosis in the sigmoid colon. Recommendations : - Discharge patient to home. - Resume previous diet. - Continue present medications. - Repeat colonoscopy in 5 years for surveillance based on pathology results. - Telephone my office for pathology results in 1 week. My findings are described in the full procedure note, which is enclosed. If I can be of further assistance, please feel free to contact me at Doctor phone number(s): Work: . Sincerely, Dean Jon MD 05/10/2021 8:11:38 AM This report has been signed electronically.
--- NOTE | 2021-05-10 08:12 | OP.COLON_ITS ---
Patient Name: Antonino Schofield Procedure Date: 05/10/2021 7:37 AM Date of : 1960 Age: 60 Procedure: Colonoscopy Indications: High risk colon cancer surveillance: Personal history of colonic polyps Providers: Dean Jon MD Referring MD: Dean Jon MD Medicines: See the Anesthesia note for documentation of the administered medications Patient Profile: Last Colonoscopy: within the past 3 years. Complications: No immediate complications. Procedure: Pre-Anesthesia Assessment: - Prior to the procedure, a History and Physical was performed, and patient medications and allergies were reviewed. The patient's tolerance of previous anesthesia was also reviewed. The risks and benefits of the procedure and the sedation options and risks were discussed with the patient. All questions were answered, and informed consent was obtained. Prior Anticoagulants: The patient has taken Eliquis (apixaban), last dose was 2 days prior to procedure. ASA Grade Assessment: III - A patient with severe systemic disease. After reviewing the risks and benefits, the patient was deemed in satisfactory condition to undergo the procedure. After I obtained informed consent, the scope was passed under direct vision. Throughout the procedure, the patient's blood pressure, pulse, and oxygen saturations were monitored continuously. The colonoscope was introduced through the anus and advanced to the cecum, identified by appendiceal orifice and ileocecal valve. The colonoscopy was performed without difficulty. The patient tolerated the procedure well. The quality of the bowel preparation was adequate to identify polyps 6 mm and larger in size. The ileocecal valve and the appendiceal orifice were photographed. Scope In: 7:43:39 AM Scope Withdrawal Time 0 hours 12 minutes 54 seconds Scope Out: 8:06:02 AM Total Procedure Duration Time 0 hours 22 minutes 23 seconds Findings: Hemorrhoids were found on perianal exam. A 4 mm polyp was found in the proximal ascending colon. The polyp was sessile. The polyp was removed with a cold biopsy forceps. Resection and retrieval were complete. A 5 mm polyp was found in the mid descending colon. The polyp was sessile. The polyp was removed with a cold biopsy forceps. Resection and retrieval were complete. Multiple diverticula were found in the sigmoid colon. Impression: - Hemorrhoids found on perianal exam. - One 4 mm polyp in the proximal ascending colon, removed with a cold biopsy forceps. Resected and retrieved. - One 5 mm polyp in the mid descending colon, removed with a cold biopsy forceps. Resected and retrieved. - Diverticulosis in the sigmoid colon. Recommendation: - Discharge patient to home. - Resume previous diet. - Continue present medications. - Repeat colonoscopy in 5 years for surveillance based on pathology results. - Telephone my office for pathology results in 1 week. Procedure Code(s): --- Professional --- 38753, Colonoscopy, flexible; with biopsy, single or multiple Diagnosis Code(s): --- Professional --- Z86.010, Personal history of colonic polyps K64.9, Unspecified hemorrhoids D12.2, Benign neoplasm of ascending colon D12.4, Benign neoplasm of descending colon K57.30, Diverticulosis of large intestine without perforation or abscess without bleeding CPT copyright 2017 [employer]. All rights reserved. The codes documented in this report are preliminary and upon technical lead review may be revised to meet current compliance requirements. Dean Jon MD 05/10/2021 8:11:38 AM This report has been signed electronically. Number of Addenda: 0 Note Initiated On: 05/10/2021 7:37 AM
[2021-05-10 08:15] VITALS: BP 109/68; BP 124/57; PULSE 66; RESP 19; O2SAT 95
[2021-05-10 08:20] VITALS: BP 115/71; BP 124/57; PULSE 76; RESP 16; O2SAT 92
[2021-05-10 08:25] VITALS: BP 116/96; BP 124/57; PULSE 67; RESP 18; TEMP 36.5; O2SAT 95
[2021-05-10 08:42] VITALS: BP 124/57
== END 2021-05-10 23:59 | disposition home or self-care (01) ==
LOC: EN 06:23 → AC 06:23
PROVIDERS: Referring Provider Surgery; Visit Provider Surgery
PROC: 0DJD8ZZ Inspection of Lower Intestinal Tract, Via Natural or Artificial Opening Endoscopic (ICD-10-PCS; CPT 45378; principal; 2021-05-10 07:25)
DX: D12.2 Benign neoplasm of ascending colon (principal); I48.0 Paroxysmal atrial fibrillation; E66.01 Morbid (severe) obesity due to excess calories; Z68.41 Body mass index [BMI] 40.0-44.9, adult; E11.9 Type 2 diabetes mellitus without complications; Z79.4 Long term (current) use of insulin; K57.30 Diverticulosis of large intestine without perforation or abscess without bleeding; D64.9 Anemia, unspecified; E78.5 Hyperlipidemia, unspecified; K64.9 Unspecified hemorrhoids; Z87.891 Personal history of nicotine dependence; I10 Essential (primary) hypertension; Z79.84 Long term (current) use of oral hypoglycemic drugs; Z86.010 Personal history of colon polyps; K21.9 Gastro-esophageal reflux disease without esophagitis; Z87.442 Personal history of urinary calculi; Z79.899 Other long term (current) drug therapy; K76.0 Fatty (change of) liver, not elsewhere classified; E07.9 Disorder of thyroid, unspecified; G47.30 Sleep apnea, unspecified; K63.5 Polyp of colon
CPT/HCPCS: 45380; 82962; 87426; 88305; C9803; J7120; J2405

== ENCOUNTER → 2021-06-20 | Outpatient (CLI) | payer MEDICAID, SELFPAY ==
[2021-06-20 14:19] LABS: Hematocrit 35.5 % (40-54); Hemoglobin 11.2 g/dL (13.0-16.5); Mean Corp Hgb Conc 31.5 g/dL (32-36); Mean Corpuscular Hgb 24.5 pg (27.0-32.0); Mean Corpuscular Volume 77.7 fL (80-94); Mean Platelet Vol. 8.6 fl (6.2-12.0); Platelet Count 222 K/mm3 (150-450); RBC Distribution Width CV 15.9 % (11.6-14.6); RBC Distribution Width SD 44.2 fl (35.1-43.9); Red Blood Count 4.57 M/mm3 (4.6-6.2); White Blood Count 9.6 K/mm3 (4.4-11.0)
[2021-06-20 15:12] LABS: Thyroid Stim Hormone (TSH) 2.75 uIU/mL (0.358-3.74)
== END | disposition home or self-care (01) ==
LOC: LAB 13:49
DX: E03.9 Hypothyroidism, unspecified (principal); D64.9 Anemia, unspecified
CPT/HCPCS: 36415; 84443; 85027

== ENCOUNTER → 2022-06-12 | Outpatient (CLI) | payer MEDICAID, SELFPAY ==
[2022-06-12 11:30] LABS: Hematocrit 39.6 % (40-54); Hemoglobin 12.8 g/dL (13.0-16.5); Mean Corp Hgb Conc 32.3 g/dL (32-36); Mean Corpuscular Hgb 25.3 pg (27.0-32.0); Mean Corpuscular Volume 78.3 fL (80-94); Mean Platelet Vol. 9.1 fl (6.2-12.0); Platelet Count 277 K/mm3 (150-450); RBC Distribution Width CV 15.7 % (11.6-14.6); RBC Distribution Width SD 44.1 fl (35.1-43.9); Red Blood Count 5.06 M/mm3 (4.6-6.2); White Blood Count 15.7 K/mm3 (4.4-11.0)
[2022-06-12 12:05] LABS: Hemoglobin A1c 6.9 % (3.8-5.6)
[2022-06-12 12:10] LABS: AST(SGOT) 9 U/L (15-37); Alanine Aminotransfer ALT/SGPT 27 U/L (16-61); Albumin, Serum 3.8 g/dL (3.2-5.0); Alkaline Phosphatase 64 U/L (45-117); Anion Gap 3 (5-15); BUN 24 mg/dL (7-18); BUN/Creat Ratio 31.1 RATIO (10-20); Calcium,Total 9.4 mg/dL (8.5-10.1); Chloride 107 mmol/L (98-107); Cholesterol 211 mg/dL (200); Creatinine, Serum 0.77 mg/dL (0.70-1.30); EST Glomerular Filtration Rate 108 mL/min (>60); Est Glom Filt Rate - Afr Amer 130 mL/min (>60); Glucose 95 mg/dL (74-106); High Density Lipoprotein 44 mg/dL; Potassium 3.6 mmol/L (3.5-5.1); Protein, Total 7.8 g/dL (6.4-8.2); Sodium Level 138 mmol/L (136-145); Thyroid Stim Hormone (TSH) 4.22 uIU/mL (0.358-3.74); Triglycerides 133 mg/dL; Very Low Density Lipoprotein 27 mg/dL (5-40)
== END | disposition home or self-care (01) ==
PROVIDERS: Visit Provider Nurse Practitioner Family
DX: E11.65 Type 2 diabetes mellitus with hyperglycemia (principal); E03.9 Hypothyroidism, unspecified; E78.5 Hyperlipidemia, unspecified
CPT/HCPCS: 36415; 80053; 80061; 82043; 83036; 84443; 85027

== ENCOUNTER → 2022-09-11 | Outpatient (CLI) | payer MEDICAID, SELFPAY | END | disposition home or self-care (01) | LOC: LAB 15:58 | PROVIDERS: Referring Provider Nurse Practitioner Family; Visit Provider Nurse Practitioner Family | DX: E11.65 Type 2 diabetes mellitus with hyperglycemia (principal) | CPT/HCPCS: 82043 ==

== ENCOUNTER 2022-12-14 15:00 | Outpatient (RCR) | payer MEDICARE, SELFPAY ==
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
--- NOTE | 2022-12-14 15:23 | HP.PTREVAL_ITS ---
Re-Evaluation Intro: Franklin Rucker, HALINA-C, It has been my pleasure to treat HUMBLE BOYER over the last 4 visits for Right Shoulder Pain. Please see the progress note below for an update on the physical therapy plan of care! Subjective Subjective: Patient reports that he went for a motorcycle ride and it was not as bad as it was before. Objective Objective/Function: Posture: improved throughout session- he does not sit with his arms crossed in front of him anymore.- more aware Gait: no deviation noted- good arm swing and trunk rotation Palpation: tender along upper trap from occiput to top of acromion- levator i nsertion- medial border of the scapula- infraspinatus- supraspinatus, bicipital groove and ac joint ROM: WFL in all planes of the cervical spine. Shoulder: WFL in all planes, Elbow: WFL in all planes Strength: Scap: fair minus, Cervical Isometric: 4+/5, Shoulder at neutral: Flexion: 4/5, Abd: 4/5, IR: 4/5, ER: 4-/5, Ext: 4+/5, Add: 4-/5, Elbow: 4+/5, Paper Plate Machine Tender: Right: 40 Left: 40 Sensation: WNL to gross touch Special Tests R Shoulder Drop Sign - IS Test: Positive R Shoulder Empty Can - SS: Positive R Shoulder Belly Press - SupScap: Positive R Shoulder Neer - Impingement: Positive R Shoulder Rojas Camron - Impingement: Positive R Shoulder Biceps Load Test - Labrum: Positive Plan Plan Plan: Continue 2-3x a week for 4 weeks Focus on ROM and scapular strength/stabilization- strengthen below 90 degrees- Balance/Gait/Functional tests Balance/Special Test Scores Quick DASH Score: 59.0900 Goals Goals Goal 1:: Patient will be I with HEP and progression Goal Time Frame: 4-6 Weeks Goal Progress: Progressing Goal 2:: Patient will maintain proper posture t/o tx session to demo increased scap s/s Goal Time Frame: 4-6 Weeks Goal Progress: Progressing Goal 3:: Patient will demo full AROM without pain Goal Time Frame: 4-6 Weeks Goal Progress: Goal Met Goal 4:: Patient will report sleeping for 1 week without pain Goal Time Frame: 4-6 Weeks Goal Progress: Progressing Goal 5:: Patient will report 80% improvement Goal Time Frame: 4-6 Weeks Goal Progress: Progressing Anticipated Interventions Anticipated Interventions Patient/Client Instruction: Educate patient on: Benefits of Fitness Program Therapeutic Exercise to Include: Strength training, Endurance training, Coordination, Agility training, Body mechanics, Postural training, Flexibilty training, Neuromotor development, Relaxation training, Passive ROM, Active ROM, Dynamic Lumbar Stabilization and Scapular Strength/Stabilization For the Purpose of:: To improve muscle performance and motor function TENS: Yes Cryotherapy (ice pack, ice massage): Yes Thermo therapy (hot pack): Yes Re-Evaluation Ending Re-evaluation ending: Please do not hesitate to contact me at [phone] by phone or Fax: if you have questions or concerns regarding this new plan of care! Sincerely, HERMES [employer]oples[employer]
--- NOTE | 2023-02-15 07:59 | HP.PT.NRP ---
Patient Information Patient Information: HUMBLE BOYER was seen in my office for initial evaluation on 11/20/22. The following Plan of Care was established for this patient: POC Established Initial Frequency: 2x /Week Initial Duration: 4 Weeks Anticipated Interventions Patient/Client Instruction: Educate patient on: Benefits of Fitness Program Therapeutic Exercise to Include: Strength training, Endurance training, Coordination, Agility training, Body mechanics, Postural training, Flexibilty training, Neuromotor development, Relaxation training, Passive ROM, Active ROM, Dynamic Lumbar Stabilization and Scapular Strength/Stabilization For the Purpose of:: To improve muscle performance and motor function TENS: Yes Cryotherapy (ice pack, ice massage): Yes Thermo therapy (hot pack): Yes Last Seen Last Seen: This patient was last seen in our office . Pertinent comments regarding their Physical therapy will appear below: Patient limited by insurance visit limit- continue home exercise program. At this point I will be discontinuing this patient from physical therapy. I would be happy to see this patient again in the future if found appropriate by the physician. Thank you! Jami Ma, HERMEST Balance/Gait/Functional tests Balance/Special Test Scores Quick DASH Score: 59.0900
== END 2022-12-14 19:00 | disposition home or self-care (01) ==
LOC: PT 15:00
PROVIDERS: Visit Provider Nurse Practitioner Family
DX: M25.511 Pain in right shoulder (principal)
CPT/HCPCS: 97110; 97162; 97164

== ENCOUNTER → 2022-12-20 | Outpatient (CLI) | payer MEDICARE, SELFPAY ==
--- NOTE | 2022-12-20 14:30 | BI_ITS ---
MAMMOGRAPHY - BILATERAL DIAGNOSTIC REASON FOR EXAM: Male, 62 years old. Right breast mass. PERTINENT HISTORY: Non-contributory. TECHNIQUE: Digital bilateral breast candace (3D mammographic acquisition) in the CC and MLO projections. 2-D mediolateral oblique (MLO) and craniocaudad (CC) views of both breasts were obtained. CAD: Full Field Digital Mammography with Computer Added Detection was performed. COMPARISON: None. FINDINGS: Breast Composition: The breasts are almost entirely fatty. The palpable abnormality corresponds to a 7.7 cm x 5.5 cm lobulated mass in the upper lateral portion of the right breast. Correlation with ultrasound is recommended. No other significant abnormalities are identified. BI/DIAG MAMM W/CAD, BILAT IMPRESSION: The palpable lump corresponds to a 7.7 cm x 5.5 cm lobulated mass. Correlation with ultrasound is recommended. ASSESSMENT CATEGORY: BIRADS Category 0: Incomplete. Need additional imaging evaluation. A letter regarding these results will be sent to the patient by the facility within 30 days. Approximately 10% of breast cancers are not detected by mammography. A normal mammogram should not delay biopsy of a clinically suspicious abnormality. Electronically Signed: Dhruv Gupta MD at 15:35 EDT ,
--- NOTE | 2022-12-20 14:30 | US_ITS ---
STUDY: ULTRASOUND BREAST - RIGHT REASON FOR EXAM: Male, 62 years old. Palpable lump in the right breast. TECHNIQUE: Axial and longitudinal images of the RIGHT breast were performed with a high resolution ultrasound transducer. # OF IMAGES: 47 COMPARISON: Comparison is made with prior mammogram done earlier today. FINDINGS: RIGHT Breast: The palpable abnormality corresponds to a 6 cm x 5.3 cm x 3.9 cm complex solid and cystic mass at the 11 to 12:00 position breast at 13 cm from the nipple Biopsy is recommended. US/Breast Limited Unilateral IMPRESSION: 6 mm in by 5.3 cm x 3.9 cm complex solid mass at the palpable site. Biopsy recommended. ASSESSMENT CATEGORY: BIRADS Category 4: Suspicious - Biopsy Should Be Considered. A letter regarding these results will be sent to the patient by the facility within 30 days. Electronically Signed: Dhruv Gupta MD at 9:27 EDT ,
== END | disposition home or self-care (01) ==
PROVIDERS: Referring Provider Nurse Practitioner Family; Visit Provider Nurse Practitioner Family
DX: R22.2 Localized swelling, mass and lump, trunk (principal); N63.41 Unspecified lump in right breast, subareolar
CPT/HCPCS: 76642; 77062; 77066; G0279

== ENCOUNTER 2023-01-09 05:21 | Day surgery (SDC) | payer MEDICARE, SELFPAY ==
--- NOTE | 2023-01-08 07:30 | CYST_PTH ---
PATIENT: HUMBLE BOYER [place] [facility] [id number] AGE/SX: 62/M ROOM: RE01/09/[address]: Dr. Jack Contreras MD : 1960 BED: DIS: 01/09/2023 SPEC #: [id number] RECD: 01/09/23 12:13 STATUS: CHICHO BALJEET #: [id number] HANY: 01/08/23 07:[address]: Jack Contreras DEPT: SURGICAL PATHOLOGY RECD BY: Shayy López ENTERED: 01/09/23 12:14 SP TYPE: Cyst OTHR DR: R[facility] Tissues: Chest wall, NOS Procedures: Surgery Specimen Level III Surgery Specimen Level IV HEADER OPERATION: Excision mass right chest wall PRE-OP DIAGNOSIS: Soft tissue mass TISSUE SUBMITTED: Cyst right chest wall MICROSCOPIC DIAGNOSIS Soft tissue mass, right chest wall, excision: Fragments of epidermal inclusion cyst with associated reactive change. AM:nehemiah 01/10/2023 MICROSCOPIC DESCRIPTION Slides are reviewed. GROSS DESCRIPTION Received in fixative is one container labeled with the patient's name and designated right chest wall lesion. The specimen consists of multiple irregular fragments of pink-yellow soft tissue that in aggregate measure 7.0 x 5.0 x 1.0 cm. Drama Critic sections are submitted in one cassette. / AM:nehemiah 01/09/2023 TC:5 CPT: 72515
[2023-01-09] VITALS (8 sets, daily range): BP systolic 127–144; BP diastolic 55–85; PULSE 80–83; RESP 14–18; TEMP 36.6–36.7; O2SAT 91–98; BMI 38.6
--- NOTE | 2023-01-09 05:46 | PCM.HP.BLA ---
History and Physical Date of Admission: 01/09/23 Intake Vital Signs 11/28/2212:45 01/03/2314:20 Height 5 ft 4 in 5 ft 4 in Weight: 225 lb BMI 38.6 BP 121/70 H Blood Pressure Location Rt brachial Position Sitting Respiration 17 Pulse 87 Pulse Source Monitor Temp 97.2 F L Temp Source Temporal Pulse Oximetry (%) 97 Oxygen Delivery Method room air Intake Visit Reasons: SOFT TISSUE MASS OF RIGHT UPPER CHEST Chief Complaint: soft tissue mass of right upper chest Is patient in pain?: No Allergies house dust Allergy (Verified 01/03/23 14:22) Unknownragweed pollen Allergy (Verified 01/03/23 14:) Unknown Medications amlodipine 10 mg tablet 10 mg PO DAILY 06/01/13 [History Confirmed 01/03/23] loratadine 10 mg tablet 10 mg PO DAILY 06/01/13 [History Confirmed 01/03/23] atenolol 25 mg tablet 25 mg PO BID 10/23/17 [History Confirmed 01/03/23] omeprazole 40 mg capsule,delayed release 40 mg PO DAILY 10/23/17 [History Confirmed 01/03/23] metformin 1,000 mg tablet 1,000 mg PO BID 12/30/19 [History Confirmed 01/03/23] potassium citrate 5 mEq (540 mg) tablet,extended release 5 meq PO DAILY 08/18/20 [History Confirmed 01/03/23] ascorbic acid (vitamin C) 500 mg capsule 500 mg PO DAILY 04/22/21 [History Confirmed 01/03/23] cholecalciferol (vitamin D3) 50 mcg (2,000 unit) capsule 50 mcg PO DAILY 04/22/21 [History Confirmed 01/03/23] furosemide 20 mg tablet 20 mg PO DAILY PRN Edema 04/22/21 [History Confirmed 01/03/23] losartan 50 mg-hydrochlorothiazide 12.5 mg tablet 1 tab PO DAILY 04/22/21 [History Confirmed 01/03/23] zinc 50 mg tablet 30 mg PO DAILY 04/22/21 [History Confirmed 01/03/23] apixaban 5 mg tablet (Eliquis) 5 mg PO BID #180 tabs 04/25/21 [Rx Confirmed 07/01/21] ferrous sulfate 325 mg (65 mg iron) tablet 325 mg PO TID 05/24/21 [History Confirmed 01/03/23] fluticasone propionate 50 mcg/actuation nasal spray,suspension 2 spray intranasal DAILY 05/24/21 [History Confirmed 01/03/23] magnesium 200 mg tablet 200 mg PO DAILY 05/24/21 [History Confirmed 01/03/23] mecobalamin (vitamin B12) 5,000 mcg disintegrating tablet mcg PO 05/24/21 [History Confirmed 01/03/23] insulin glargine 100 unit/mL (3 mL) subcutaneous pen (Lantus Solostar U-100 Insulin) 18 unit subcut BID 01/03/23 [History Confirmed 01/03/23] PFS Medical History Acid reflux Anemia Arthritis Arthritis Back pain Back problem Cardiology follow-up encounter Colon polyps COVID-19 CPAP (continuous positive airway pressure) dependence Diabetes Dietary restriction Essential (primary) hypertension Fatty liver Former smoker Gastric reflux Hay fever Hemorrhoids History of edema History of renal disease Hyperlipidemia Hypertension Insulin dependent diabetes mellitus Kidney stone Knee pain Low iron Morbid obesity Neck pain Paronychia of left little finger Paroxysmal atrial fibrillation Sleep apnea Sleep apnea Thyroid disease Type 2 diabetes mellitus Wears dentures Surgical History History of cataract surgery History of lithotripsy Hx of colonoscopy (05/10/21) Family History Mother Diabetes Heart disease HypertensionFather Kidney disease CVA (cerebral vascular accident) Hypertension Diabetes Heart diseaseSister Diabetes Cancer Kidney? Social History Smoking Status: Former smoker alcohol intake: never substance use type: does not use caffeine: Yes what type of physical activity do you participate in: none frequency: does not exercise HPI HPI HPI: Patient is a 62-year-old male here with a right chest wall mass. He says this has been growing for the last 10 years. He says he has problems with sebaceous cysts in other areas of his body. He reports sometimes gets red but it has not drained anything. ROS General General: Yes weight change; No appetite, fatigue, colon cancer, breast cancer or weakness HEENT HEENT: No difficulty swallowing, eye injury, eye surgery, swollen glands or hoarseness Endo Endocrine: Yes diabetes mellitus; No thyroid disease, thyroid cancer, Hair loss, heat intolerance or cold intolerance Skin Skin: No rash or changing moles Breast Breast: Yes right breast lump; No left breast lump, nipple discharge, breast pain, abnormal mammogram, abnormal US or breast enlargement Musc Musculoskeletal: Yes back problems and arthritis; No rheumatoid arthritis, gout or joint pain Cardio Cardiovascular: Yes atrial fibrillation and high blood pressure; No murmur, pacemaker, heart disease, heart attack, heart stent, palpitations, shortness of breat with exertion or chest pain Psych Psychiatric: No depression, anxiety or hearing voices Resp Respiratory: No shortness of breath, Yes sleep apnea, No cough, No COPD, No asthma, No emphysema and No wheezing Gastro Gastrointestinal: No abdominal pain, No nausea or vomiting, No diarrhea, No constipation, No blood in stool, Yes acid reflux, No hemorrhoids, No ulcers, No gallbladder problem and No black,tarry stools [place] Hematologic: Yes blood thinners, No blood disorders, No bleeding, No anemia and No blood clots Neuro Neurologic: No system reviewed and no additional complaints, except as documented, No as per HPI, No abnormal gait, No abnormal hearing, No abnormal movements, No abnormal speech, No behavioral changes, No burning sensations, No confusion, No convulsions, No disequilibrium, No dizziness, No localized weakness, No frequent falls, No headache(s), No lack of coordination, No loss of vision, No memory loss, No numbness, No other visual disturbances, No radicular pain, No restless legs, No sensory deficit, No syncope, No tingling, No tremor(s), No weakness and No other Exam Const General: cooperative Orientation: alert and oriented x3 [facility] Head: normal to inspection Neck Neck: normal visual inspection and full ROM Chest Other: Fluctuant mass over the right pectoralis Resp Effort & Inspection: normal respiratory effort Auscultation: clear to auscultation bilaterally Cardio Rate: regular rate Rhythm: regular rhythm GI Inspection: non-distended Palpation: soft and nontender Skin General: no rashes or lesions noted Neuro General: patient alert and patient oriented x3 Extrem General: full ROM Psych Appearance: grossly normal Mental Status: mental status grossly normal Assessment and Plan Assessment and Plan (1) Soft tissue mass: Status: Acute Plan: The patient has a mass on his right chest. It is soft and I performed an ultrasound in the office and it appears to be filled with soft material as well. I am thinking this may be a sebaceous cyst. He has had sebaceous cyst on other areas of his body. This is extremely large measuring around 10 cm. He says it has been slowly growing over 10 years. He says it has been slowly growing. I explained excision of a sebaceous cyst with him. I will send it for pathology as well. If it comes out is solid then I told him that he would have to have further excision if this came back as anything malignant. Patient understands and would like it removed and sent a biopsy. The patient will stop his Eliquis 2 days prior to surgery. Jack Contreras MD Pager: [facility] [address] [place] [address], [address] [place] [address] Office: I have examined the patient and the H&P has been reviewed. There are no clinical changes since date of exam.
[2023-01-09] MEDS: Lactated Ringers 1,000 ML 15 ML IV (06:25)
[2023-01-09] MEDS: Cefazolin 2 GM in 0.9% Normal Saline (100mL Bag) 100 ML IV (07:30)
[2023-01-09] MEDS: Lidocaine 1%/Epi 1:200 (30ml) 30 ML AMPUL (07:43)
--- NOTE | 2023-01-09 08:14 | PCM.OPRPT ---
Report of Operation Date of Procedure: 01/09/23 Pre-Operative Diagnosis: Right chest wall mass Post-Operative Diagnosis: Right chest wall sebaceous cyst Surgery/Procedure Performed:: Excision of right chest wall sebaceous cyst, 11 cm Type of Anesthesia: Local MAC Specimen's removed: Cyst wall and contents Estimated Blood Loss (mL): 5 Description of Procedure: Patient was brought back to the operating room and MAC anesthesia was induced. The right chest was prepped and draped in usual sterile fashion. A local anesthetic was injected into the area and then an incision was made with a scalpel. There was copious cheesy material that was expressed. Next the cyst wall was dissected free from the surrounding materials using electrocautery dissection. The cyst wall was sent for pathology. The cavity was irrigated copiously and suctioned dry and hemostasis was obtained using electrocautery. The incision was closed with interrupted 3-0 Vicryl sutures. Steri-Strips and bandages were applied. Patient tolerated the procedure and was brought to PACU in stable condition. Admit VTE Documentation VTE Mechan Device Prophylaxis: SCD's
--- NOTE | 2023-01-09 08:25 | DCINST_ITS ---
Discharge Instructions Diet Discharge Diet: No restrictions Activity Discharge Activity: Return to Normal Activity Lifting Restrictions: 15 lbs for 2 days Dressing / Incision Call your doctor if your incision/area has: Continuous Slow Oozing, Sudden Increased Bleeding, Increased Pain/ Swelling, Increased Redness, Foul Smelling Discharge and Swelling at the incision site Call your doctor if you observe: Fever of 101 or Higher Change Dressing in: 2 days Cleanse incision/area with: Soap & Water Follow Up Care Please Follow Up With: Jack Contreras MD When: Please call to schedule 2 week follow up appointment. [phone] Test Results: Test results from this visit will be discussed in further detail at your follow- up appointment, if applicable. Discharge Plan Admission Attending Provider: Jack Contreras [facility] Additional Instructions / Restrictions: Alternate ibuprofen and Tylenol for pain, resume apixaban on Discharge Orders/Prescriptions Prescriptions: No Action metformin 1,000 mg tablet 1,000 mg PO BID potassium citrate 5 mEq (540 mg) tablet extended release 5 meq PO DAILY Patient Comments: TAKE 1 TABLET BY MOUTH EVERY DAY fluticasone propionate 50 mcg/actuation spray,suspension 2 spray intranasal DAILY Patient Comments: use 2 (two) sprays in each nostril once daily magnesium 200 mg tablet 200 mg PO DAILY mecobalamin (vitamin B12) 5,000 mcg tablet,disintegrating 5,000 mcg PO DAILY losartan-hydrochlorothiazide 50-12.5 mg tablet 1 tab PO DAILY ascorbic acid (vitamin C) 500 mg capsule 500 mg PO DAILY cholecalciferol (vitamin D3) 50 mcg (2,000 unit) capsule 50 mcg PO DAILY Lantus Solostar U-100 Insulin 100 unit/mL (3 mL) insulin pen 18 unit subcut BID amlodipine 10 MG tablet 10 mg PO DAILY loratadine 10 MG tablet 10 mg PO DAILY ferrous sulfate 325 mg (65 mg iron) tablet 325 mg PO TID atenolol 25 MG tablet 25 mg PO BID omeprazole 40 MG capsule,delayed release(DR/EC) 40 mg PO DAILY zinc 50 mg tablet 30 mg PO DAILY Jardiance 25 mg tablet 25 mg PO DAILY Patient Comments: TAKE 1 TABLET BY MOUTH EVERY DAY Mounjaro 7.5 mg/0.5 mL pen injector 7.5 mg SUBCUT MO Patient Comments: INJECT 1 (ONE) pen EVERY WEEK Eliquis 5 mg tablet 5 mg PO BID Qty: 180 3RF Referrals / Follow [facility]: [facility] [Primary Care Provider[facility] - Disposition Disposition (needs filled in before D/C Order can be placed): Home, Self Care
--- NOTE | 2023-01-09 08:45 | SUR.PHASEI ---
PATIENT HAS KNOWN [facility], REPORTS NONCOMPLIANCE w/ CPAP AT HOME. SOON PATIENT FALLS INTO SLEEP, HIS SPO2 DROPS INTO 80'S%, QUICKLY RECOVERS INTO LOW-MID 90'S w/ VERBAL STIMULATION & PATIENT AWAKENING. DENIES ANY C/O.
== END 2023-01-09 09:32 | disposition home or self-care (01) ==
LOC: SDC 05:22 → AC 05:23
PROVIDERS: Referring Provider Surgery; Visit Provider Surgery
PROC: (CPT 11406; principal; 2023-01-09 07:15)
DX: L72.0 Epidermal cyst (principal); E11.9 Type 2 diabetes mellitus without complications; Z79.4 Long term (current) use of insulin; D64.9 Anemia, unspecified; E78.5 Hyperlipidemia, unspecified; Z87.891 Personal history of nicotine dependence; Z86.16 Personal history of COVID-19; I10 Essential (primary) hypertension; Z79.84 Long term (current) use of oral hypoglycemic drugs; R22.2 Localized swelling, mass and lump, trunk; R07.89 Other chest pain
CPT/HCPCS: 11406; 00300; 88304; 88305; J7120; J2405

== ENCOUNTER → 2023-03-26 | Outpatient (CLI) | payer MEDICARE, SELFPAY ==
[2023-03-26 10:38] LABS: Hematocrit 36.7 % (40-54); Hemoglobin 11.5 g/dL (13.0-16.5); Mean Corp Hgb Conc 31.3 g/dL (32-36); Mean Corpuscular Hgb 24.9 pg (27.0-32.0); Mean Corpuscular Volume 79.4 fL (80-94); Mean Platelet Vol. 9.2 fl (6.2-12.0); Platelet Count 228 K/mm3 (150-450); RBC Distribution Width CV 15.6 % (11.6-14.6); Red Blood Count 4.62 M/mm3 (4.6-6.2)
[2023-03-26 11:18] LABS: Vitamin D,25 Hydroxy 85.4 ng/mL
[2023-03-26 11:32] LABS: AST(SGOT) 14 U/L (15-37); Alanine Aminotransfer ALT/SGPT 28 U/L (16-61); Albumin, Serum 3.6 g/dL (3.2-5.0); Alkaline Phosphatase 60 U/L (45-117); Anion Gap 4 (5-15); BUN 19 mg/dL (7-18); BUN/Creat Ratio 25.9 RATIO (10-20); Calcium,Total 9.5 mg/dL (8.5-10.1); Chloride 103 mmol/L (98-107); Cholesterol 191 mg/dL (200); Creatinine, Serum 0.73 mg/dL (0.70-1.30); EST Glomerular Filtration Rate 114 mL/min (>60); Est Glom Filt Rate - Afr Amer 138 mL/min (>60); Globulin 3.5 g/dL (2.2-4.2); Glucose 124 mg/dL (74-106); High Density Lipoprotein 35 mg/dL; Iron 45 ug/dL (65-175); Iron Binding Capacity,Total 307 ug/dL (250-450); PERCENT IRON SATURATION 14.7 % (15.0-55.0); PSA,Total - Annual Screen 1.43 ng/mL (0.00-4.00); Potassium 3.4 mmol/L (3.5-5.1); Protein, Total 7.1 g/dL (6.4-8.2); Sodium Level 138 mmol/L (136-145); T4 Free Direct 0.97 ng/dL (0.76-1.46); Thyroid Stim Hormone (TSH) 3.86 uIU/mL (0.358-3.74); Triglycerides 227 mg/dL; Very Low Density Lipoprotein 45 mg/dL (5-40)
[2023-03-26 11:40] LABS: Microalbumin,Random Urine 91.1 mg/L (NO RANGE EST.)
== END | disposition home or self-care (01) ==
LOC: LAB 10:14
DX: D50.9 Iron deficiency anemia, unspecified (principal); E11.65 Type 2 diabetes mellitus with hyperglycemia; E78.5 Hyperlipidemia, unspecified; E03.9 Hypothyroidism, unspecified; Z12.5 Encounter for screening for malignant neoplasm of prostate; E55.9 Vitamin D deficiency, unspecified
CPT/HCPCS: 36415; 80053; 80061; 82043; 82306; 83540; 83550; 84153; 84439; 84443; 85027; G0103

== ENCOUNTER → 2023-09-20 | Outpatient (CLI) | payer MEDICARE, SELFPAY ==
[2023-09-20 17:22] LABS: Absolute Lymphocyte Count 1.75 X10^3/uL (0.83-4.51); Absolute Neutrophil Count 8.1 X10^3/uL (2.0-7.7); Basophil# 0.05 X10^3/uL; Basophil% 0.5 % (0-1); Eosinophils% 0.9 % (0-5); Hematocrit 36.5 % (40-54); Hemoglobin 11.9 g/dL (13.0-16.5); Lymphocyte # 1.75 X10^3/ul (0.83-4.51); Mean Corp Hgb Conc 32.6 g/dL (32-36); Mean Corpuscular Hgb 25.2 pg (27.0-32.0); Mean Corpuscular Volume 77.3 fL (80-94); Mean Platelet Vol. 9.4 fl (6.2-12.0); Monocyte# 0.87 X10^3/uL; NRBC Flagged by Analyzer 0 % (0-5); Neutrophil # 8.06 X10^3/uL (2.7-7.7); Neutrophil % 73.9 % (47-70); Platelet Count 291 K/mm3 (150-450); RBC Distribution Width CV 15.1 % (11.6-14.6); RBC Distribution Width SD 41.7 fl (35.1-43.9); Red Blood Count 4.72 M/mm3 (4.6-6.2); White Blood Count 10.9 K/mm3 (4.4-11.0)
[2023-09-20 17:47] LABS: Microalbumin,Random Urine 42.8 mg/L (NO RANGE EST.)
[2023-09-20 18:00] LABS: AST(SGOT) 20 U/L (15-37); Alanine Aminotransfer ALT/SGPT 21 U/L (16-61); Albumin, Serum 3.6 g/dL (3.2-5.0); Alkaline Phosphatase 70 U/L (45-117); Anion Gap 10 (5-15); BUN 20 mg/dL (7-18); BUN/Creat Ratio 21.4 RATIO (10-20); Calcium,Total 9.1 mg/dL (8.5-10.1); Chloride 105 mmol/L (98-107); Creatinine, Serum 0.93 mg/dL (0.70-1.30); EST Glomerular Filtration Rate 86 mL/min (>60); Est Glom Filt Rate - Afr Amer 104 mL/min (>60); Globulin 3.5 g/dL (2.2-4.2); Glucose 149 mg/dL (74-106); Potassium 3.5 mmol/L (3.5-5.1); Protein, Total 7.1 g/dL (6.4-8.2); Sodium Level 139 mmol/L (136-145); Thyroid Stim Hormone (TSH) 1.81 uIU/mL (0.358-3.74)
== END | disposition home or self-care (01) ==
PROVIDERS: PCP Nurse Practitioner Family; Referring Provider Nurse Practitioner Family; Visit Provider Nurse Practitioner Family
DX: E11.65 Type 2 diabetes mellitus with hyperglycemia (principal); E03.9 Hypothyroidism, unspecified
CPT/HCPCS: 36415; 80053; 82043; 84443; 85025

== ENCOUNTER → 2024-03-19 | Outpatient (CLI) | payer MEDICARE, MEDICAID, SELFPAY ==
--- NOTE | 2024-03-19 15:56 | RAD_ITS ---
PROCEDURE: PELVIS 1 OR 2 VIEWS REASON FOR EXAM: Bilateral ischial bursitis TECHNIQUE: 1 view(s) of the pelvis. COMPARISON: None available RAD/Pelvis 1 or 2 Views IMPRESSION: Degenerative changes are seen of the visualized lower lumbar spine. Mild sacroiliac joint degenerative changes are noted. At least moderate bilateral arterial calcification is seen. Mild degenerative changes of the bilateral hip joints are noted, without signif icant degree of joint space narrowing identified. No evidence of femoral head osteonecrosis. Chronic appearing enthesophytes of the bilateral inferior ischia are noted. No acute process is radiographically evident. Reading Location: [id number]
== END | disposition home or self-care (01) ==
LOC: RAD 15:55
PROVIDERS: PCP Nurse Practitioner Family; Referring Provider Anesthesiology; Visit Provider Anesthesiology
DX: M70.71 Other bursitis of hip, right hip (principal); M70.72 Other bursitis of hip, left hip
CPT/HCPCS: 72170

== ENCOUNTER → 2024-03-25 | Outpatient (CLI) | payer MEDICARE, MEDICAID, SELFPAY ==
[2024-03-25 17:18] LABS: Absolute Lymphocyte Count 1.43 X10^3/uL (0.83-4.51); Absolute Neutrophil Count 7.2 X10^3/uL (2.0-7.7); Basophil# 0.05 X10^3/uL; Basophil% 0.5 % (0-1); Eosinophils% 1.1 % (0-5); Hematocrit 39.5 % (40-54); Hemoglobin 12.7 g/dL (13.0-16.5); Lymphocyte # 1.43 X10^3/ul (0.83-4.51); Lymphocyte % 15.1 % (19-41); Mean Corp Hgb Conc 32.2 g/dL (32-36); Mean Corpuscular Hgb 25.1 pg (27.0-32.0); Mean Corpuscular Volume 78.1 fL (80-94); Mean Platelet Vol. 8.6 fl (6.2-12.0); Monocyte# 0.69 X10^3/uL; Monocyte% 7.3 % (0-10); NRBC Flagged by Analyzer 0 % (0-5); Neutrophil # 7.18 X10^3/uL (2.7-7.7); Neutrophil % 75.5 % (47-70); Platelet Count 243 K/mm3 (150-450); RBC Distribution Width CV 14.7 % (11.6-14.6); RBC Distribution Width SD 41.5 fl (35.1-43.9); Red Blood Count 5.06 M/mm3 (4.6-6.2); White Blood Count 9.5 K/mm3 (4.4-11.0)
[2024-03-25 17:34] LABS: Microalbumin,Random Urine 51.3 mg/L (NO RANGE EST.)
[2024-03-25 17:40] LABS: AST(SGOT) 12 U/L (15-37); Alanine Aminotransfer ALT/SGPT 22 U/L (16-61); Albumin, Serum 3.6 g/dL (3.2-5.0); Alkaline Phosphatase 62 U/L (45-117); Anion Gap 9 (5-15); BUN 16 mg/dL (7-18); BUN/Creat Ratio 17.1 RATIO (10-20); Calcium,Total 9.3 mg/dL (8.5-10.1); Chloride 102 mmol/L (98-107); Cholesterol 196 mg/dL (200); Creatinine, Serum 0.94 mg/dL (0.70-1.30); EST Glomerular Filtration Rate 86 mL/min (>60); Est Glom Filt Rate - Afr Amer 104 mL/min (>60); Globulin 3.7 g/dL (2.2-4.2); Glucose 132 mg/dL (74-106); High Density Lipoprotein 43 mg/dL; PSA,Total - Annual Screen 1.57 ng/mL (0.00-4.00); Potassium 3.6 mmol/L (3.5-5.1); Protein, Total 7.3 g/dL (6.4-8.2); Sodium Level 138 mmol/L (136-145); T4 Free Direct 0.98 ng/dL (0.76-1.46); Triglycerides 186 mg/dL; Very Low Density Lipoprotein 37 mg/dL (5-40)
== END | disposition home or self-care (01) ==
LOC: VSLAB 16:31
PROVIDERS: PCP Nurse Practitioner Family; Visit Provider Nurse Practitioner Family
DX: E11.65 Type 2 diabetes mellitus with hyperglycemia (principal); E03.9 Hypothyroidism, unspecified; E78.5 Hyperlipidemia, unspecified; E55.9 Vitamin D deficiency, unspecified; Z12.5 Encounter for screening for malignant neoplasm of prostate
CPT/HCPCS: 36415; 80053; 80061; 82043; 82306; 84153; 84439; 84443; 85025; G0103

== ENCOUNTER → 2024-06-03 | Outpatient (CLI) | payer MEDICARE, MEDICAID, SELFPAY ==
--- NOTE | 2024-06-03 12:45 | RAD_ITS ---
PROCEDURE: SHOULDER MIN 2 VIEWS 06/03/2024 REASON FOR EXAM: PAIN IN LEFT SHOULDER TECHNIQUE: Four views of the left shoulder. COMPARISON: None. FINDINGS: Mild osteopenia. Moderate degenerative joint disease of the acromioclavicular and glenohumeral joints. Degenerative fibrocystic changes at the humeral insertion of the rotator cuff tendons. No fracture or dislocation is seen. No lytic or blastic aggressive bone lesion is identified. RAD/Shoulder min 2 Views IMPRESSION: Degenerative joint disease. No radiographic evidence of an acute bone abnormality. Reading Location[facility] [address]
--- NOTE | 2024-06-03 12:48 | RAD_ITS ---
PROCEDURE: CLAVICLE 06/03/2024 REASON FOR EXAM: PAIN IN LEFT SHOULDER TECHNIQUE: Two views of the left clavicle. COMPARISON: None. FINDINGS: Moderate degenerative joint disease of the acromioclavicular and glenohumeral joints. Mild osteopenia. No fracture or dislocation is seen. No lytic or blastic aggressive bone lesion is noted. RAD/Clavicle IMPRESSION: No radiographic evidence of an acute bone abnormality. Reading Location[facility]
== END | disposition home or self-care (01) ==
LOC: RAD 12:37
PROVIDERS: PCP Nurse Practitioner Family
DX: M25.512 Pain in left shoulder (principal)
CPT/HCPCS: 73000; 73030

== ENCOUNTER → 2024-10-02 | Outpatient (CLI) | payer MEDICARE, SELFPAY ==
[2024-10-02 16:44] LABS: Hematocrit 35.8 % (40-54); Hemoglobin 11.8 g/dL (13.0-16.5); Immature Granulocytes Count 0.120 X10^3/uL (0.0-0.0); Mean Corp Hgb Conc 33.0 g/dL (32-36); Mean Corpuscular Volume 77.7 fL (80-94); Mean Platelet Vol. 8.8 fl (6.2-12.0); NRBC Flagged by Analyzer 0 % (0-5); Platelet Count 224 K/mm3 (150-450); RBC Distribution Width CV 14.5 % (11.6-14.6); RBC Distribution Width SD 40.2 fl (35.1-43.9); Red Blood Count 4.61 M/mm3 (4.6-6.2); White Blood Count 9.8 K/mm3 (4.4-11.0)
[2024-10-02 17:06] LABS: Microalbumin,Random Urine 47.3 mg/L (<20 mg/L)
[2024-10-02 17:19] LABS: AST(SGOT) 17 U/L (<=37); Alanine Aminotransfer ALT/SGPT 13 U/L (<=46); Albumin, Serum 4.0 g/dL (3.4-4.8); Alkaline Phosphatase 66 U/L (40-129); Anion Gap 15 (5-15); BUN 17 mg/dL (4-19); BUN/Creat Ratio 23.1 RATIO (10-20); Calcium,Total 9.5 mg/dL (7.6-11.0); Carbon Dioxide 24.5 mmol/L (21.0-32.0); Chloride 101 mmol/L (98-108); Cholesterol 182 mg/dL (<=200); Globulin 2.9 g/dL (2.2-4.2); Glucose 108 mg/dL (70-99); Low Density Lipoprotein Calc. 107 mg/dL; Potassium 3.6 mmol/L (3.3-5.1); Triglycerides 173 mg/dL; Very Low Density Lipoprotein 35 mg/dL (5-40); cholesterol:hdl ratio screen 4.54
== END | disposition home or self-care (01) ==
LOC: VSLAB 14:18
PROVIDERS: PCP Nurse Practitioner Family
DX: E11.65 Type 2 diabetes mellitus with hyperglycemia (principal)
CPT/HCPCS: 36415; 80053; 80061; 82043; 84443; 85025